=== PATIENT | female | born 1940 | race Two or more races ===

== ENCOUNTER → 2022-10-30 | Outpatient (CLI) | payer OTHER ==
[2022-10-30 09:39] LABS: Eosinophils # (auto) 0 10 ^3/uL (0-0.8); Eosinophils % (auto) 0.4 % (0.0-7.0); Hematocrit 30.1 % (36.0-46.0); Lymphocytes # (auto) 1.2 10 ^3/uL (0.4-5.4); Mean Corpuscular Hemoglobin 22.5 pg (28.0-32.0); Monocytes # (auto) 0.6 10 ^3/uL (0-1.3); Neutrophils # (auto) 6.4 10 ^3/uL (1.6-8.6); White Blood Cell 8.3 10^3/uL (4.4-10.8)
[2022-10-30 09:41] LABS: Basophils # (auto) 0 10 ^3/uL (0-0.2); Basophils % (auto) 0.5 % (0.0-2.0); Hemoglobin 9.7 g/dL (12.2-16.2); Mean Corpuscular Hgb Conc. 32.3 g/dL (32.0-36.0); Mean Corpuscular Volume 69.7 fL (80.0-100.0); Monocytes % (auto) 7.2 % (0.0-12.0); Neutrophils % (auto) 76.9 % (37.0-80.0); Nucleated Red Blood Cells % 0.1 %; Red Blood Cells 4.32 10^6/uL (4.0-5.20); Red Cell Distribution Width 17.6 % (11.8-14.3)
[2022-10-30 09:47] LABS: Urine Bacteria FEW /hpf (None Seen); Urine Blood Negative /uL (Negative); Urine Specific Gravity 1.012 (1.001-1.035); Urine WBC 20 /hpf (0 - 5)
[2022-10-30 10:03] LABS: Albumin 3.6 g/dL (3.4-5.0); Calcium 9.1 mg/dL (8.5-10.1); Potassium 4.1 mmol/L (3.5-5.1); Uric Acid 5.4 mg/dL (2.6-6.0)
[2022-10-30 10:08] LABS: BUN/Creatinine Ratio 20.3 (10.0-20.0); Bilirubin, Total 0.4 mg/dL (0.2-1.0); Total Protein 7.3 g/dL (6.4-8.2)
[2022-10-30 10:10] LABS: % Iron Saturation 12.2 % (15-50)
== END | disposition home or self-care (01) ==
LOC: LAB 09:04
PROVIDERS: ATTEND Family Medicine
DX: Z00.00 Encounter for general adult medical examination without abnormal findings (principal); R53.81 Other malaise; E11.9 Type 2 diabetes mellitus without complications
CPT/HCPCS: 36415; 80053; 80061; 81001; 82306; 82607; 83036; 83540; 83550; 84443; 84550; 85025; 87086

== ENCOUNTER → 2023-02-05 | Outpatient (CLI) | payer OTHER ==
[2023-02-05 09:29] LABS: Albumin 3.8 g/dL (3.4-5.0); Calcium 9.6 mg/dL (8.5-10.1); Potassium 4.3 mmol/L (3.5-5.1)
[2023-02-05 09:35] LABS: BUN/Creatinine Ratio 20.3 (10.0-20.0); Bilirubin, Total 0.3 mg/dL (0.2-1.0); Total Protein 7.4 g/dL (6.4-8.2)
== END | disposition home or self-care (01) ==
LOC: LAB 08:42
PROVIDERS: ATTEND Nurse Practitioner Acute Care
DX: I10 Essential (primary) hypertension (principal); E78.2 Mixed hyperlipidemia; E55.9 Vitamin D deficiency, unspecified; M23.52 Chronic instability of knee, left knee; E11.65 Type 2 diabetes mellitus with hyperglycemia; R26.2 Difficulty in walking, not elsewhere classified; E53.8 Deficiency of other specified B group vitamins; Z86.73 Personal history of transient ischemic attack (TIA), and cerebral infarction without residual deficits
CPT/HCPCS: 36415; 80053; 80061; 83036

== ENCOUNTER 2023-03-23 13:51 | Day surgery (SDC) | payer OTHER ==
[~2023-03-23] VITALS: Ht 137.2 cm; Wt 40.5 kg
[2023-03-23] MEDS ORDERED: SODIUM CHLORIDE 0.9% 500 ML IV ONE (14:30)
[2023-03-23] MEDS ORDERED: GLUCAGON EMERG KIT 1mg/1ml IV ONE (14:30)
[2023-03-23] MEDS ORDERED: PANTOPRAZOLE 40 MG/10 ML VIAL INJ IV ONE (14:45)
[2023-03-23 15:06] LABS: Basophils # (auto) 0.1 10 ^3/uL (0-0.2); Eosinophils # (auto) 0.3 10 ^3/uL (0-0.8); Monocytes # (auto) 0.7 10 ^3/uL (0-1.3); Neutrophils # (auto) 7.1 10 ^3/uL (1.6-8.6); White Blood Cell 9.6 10^3/uL (4.4-10.8)
[2023-03-23 15:07] LABS: Eosinophils % (auto) 3.3 % (0.0-7.0); Hematocrit 30.7 % (36.0-46.0); Hemoglobin 9.7 g/dL (12.2-16.2); Lymphocytes # (auto) 1.3 10 ^3/uL (0.4-5.4); Lymphocytes % (auto) 14.1 % (10.0-50.0); Mean Corpuscular Hemoglobin 21.8 pg (28.0-32.0); Mean Corpuscular Hgb Conc. 31.7 g/dL (32.0-36.0); Monocytes % (auto) 7.8 % (0.0-12.0); Neutrophils % (auto) 73.8 % (37.0-80.0); Red Blood Cells 4.45 10^6/uL (4.0-5.20); Red Cell Distribution Width 19.1 % (11.8-14.3)
[2023-03-23 15:14] LABS: Alanine Aminotransferase 19 U/L (7-40); Albumin 4.6 g/dL (3.2-4.8); Alkaline Phosphatase 95 U/L (46-116); Anion Gap 8 (5-15); Aspartate Aminotransferase 19 U/L (13-40); BUN/Creatinine Ratio 19.5 (10.0-20.0); Bilirubin, Total 0.4 mg/dL (0.2-1.0); Blood Urea Nitrogen 24 mg/dL (9-23); Calcium 10.1 mg/dL (8.7-10.4); Carbon Dioxide 24 mmol/L (20-30); Chloride 104 mmol/L (98-107); Glucose 172 mg/dL (74-106); Potassium 4.2 mmol/L (3.5-5.1); Sodium 136 mmol/L (136-145); Total Protein 7.2 g/dL (5.7-8.2)
[2023-03-23 15:19] LABS: INR 1.02 (0.9-1.15); Partial Thromboplastin Time 25.9 SEC (24.5-34.5); Prothrombin Time 10.7 sec (9.3-11.8)
[2023-03-23] MEDS ORDERED: MIDAZOLAM HCL 5 MG/ML-1ML VIAL ONE (15:31)
[2023-03-23] MEDS ORDERED: FLUMAZENIL 0.1 MG/ML INJ 10ML MDV IV ONE (15:32)
[2023-03-23] MEDS ORDERED: NALOXONE HCL 0.4 MG/ML VIAL ONE (15:32)
[2023-03-23] MEDS ORDERED: LIDOCAINE VISCOUS 2% 15ML UD ONE (15:32)
[2023-03-23] MEDS: fentaNYL CITRATE 100 MCG/2 ML VL ONE ×2 (15:42→15:45)
[2023-03-23] MEDS: diphenhdrAMINE HCL 50 MG/1 ML VL ONE ×2 (15:43→15:44)
[2023-03-23 15:46] LABS: Urine Bacteria FEW /hpf (None Seen); Urine Blood Negative /uL (Negative); Urine Clarity Clear (Clear); Urine Color Colorless (Yellow); Urine Mucus FEW (None Seen); Urine Protein, UAD Negative (Negative); Urine Urobilinogen Normal (Negative); Urine WBC 71 /hpf (0 - 5); Urine pH 5.5 (5.0-8.0)
[2023-03-23 15:52] VITALS: PULSE 74; RESP 16; O2SAT 100
[2023-03-23 16:10] VITALS: PULSE 69; RESP 17; O2SAT 99
[2023-03-23 16:22] VITALS: BP 138/50; PULSE 70; RESP 16; O2SAT 99
== END 2023-03-23 16:40 | disposition home or self-care (01) ==
LOC: ER 13:51 → GI 14:55
PROVIDERS: ATTEND Internal Medicine Gastroenterology
DX: T18.128A Food in esophagus causing other injury, initial encounter (principal); K44.9 Diaphragmatic hernia without obstruction or gangrene; K21.00 Gastro-esophageal reflux disease with esophagitis, without bleeding; K22.89 Other specified disease of esophagus; K22.10 Ulcer of esophagus without bleeding; Z88.1 Allergy status to other antibiotic agents; W44.F3XA Food entering into or through a natural orifice, initial encounter
CPT/HCPCS: 36415; 43239; 80053; 81001; 84484; 85025; 85610; 85730; 88305; 88312; 88342; 99283; C9113; J1200; J1610; J2250; J3010; J7030

== ENCOUNTER 2023-05-12 09:26 | Inpatient (IN) | payer OTHER ==
[~2023-05-12] VITALS: Ht 152.4 cm; Wt 44.4 kg
[2023-05-12 10:46] LABS: Basophils # (auto) 0.1 10 ^3/uL (0-0.2); Basophils % (auto) 0.7 % (0.0-2.0); Eosinophils # (auto) 0 10 ^3/uL (0-0.8); Eosinophils % (auto) 0.1 % (0.0-7.0); Hemoglobin 9.9 g/dL (12.2-16.2); Lymphocytes # (auto) 0.4 10 ^3/uL (0.4-5.4); Monocytes # (auto) 0.8 10 ^3/uL (0-1.3)
[2023-05-12 10:49] LABS: Hematocrit 31.3 % (36.0-46.0); Mean Corpuscular Hemoglobin 21.9 pg (28.0-32.0); Mean Corpuscular Hgb Conc. 31.7 g/dL (32.0-36.0); Mean Corpuscular Volume 69.3 fL (80.0-100.0); Monocytes % (auto) 4.3 % (0.0-12.0); Neutrophils % (auto) 92.9 % (37.0-80.0); Red Blood Cells 4.52 10^6/uL (4.0-5.20); Red Cell Distribution Width 18.6 % (11.8-14.3); White Blood Cell 19.4 10^3/uL (4.4-10.8)
[2023-05-12 11:07] LABS: INR 0.98 (0.9-1.15); Partial Thromboplastin Time 23.6 SEC (24.5-34.5); Prothrombin Time 10.3 sec (9.3-11.8)
[2023-05-12 11:41] LABS: Alanine Aminotransferase 25 U/L (7-40); Albumin 4.7 g/dL (3.2-4.8); Alkaline Phosphatase 122 U/L (46-116); Anion Gap 10 (5-15); Aspartate Aminotransferase 21 U/L (13-40); BUN/Creatinine Ratio 26.2 (10.0-20.0); Bilirubin, Total 0.5 mg/dL (0.2-1.0); Blood Urea Nitrogen 34 mg/dL (9-23); Calcium 9.5 mg/dL (8.5-10.1); Carbon Dioxide 21 mmol/L (20-30); Chloride 108 mmol/L (98-107); Glucose 286 mg/dL (74-106); Potassium 4.3 mmol/L (3.5-5.1); Sodium 139 mmol/L (136-145); Total Protein 6.9 g/dL (5.7-8.2)
[2023-05-12 12:29] LABS: Magnesium 1.6 mg/dL (1.6-2.6)
[2023-05-12] MEDS ORDERED: HYDROcodone-ACET 5/325MG TAB PO PRN (14:45)
[2023-05-12] MEDS ORDERED: ONDANSETRON HCL 4 MG/2 ML VIAL IV PRN (14:45)
[2023-05-12] MEDS ORDERED: DEXTROSE (50%) 50ML SYRG IV PRN (14:45)
[2023-05-12] MEDS ORDERED: CEFTRIAXONE SODIUM 2 GM in D5W 5% 100 ML IV ONE (14:45)
[2023-05-12] MEDS ORDERED: MORPHINE SULFATE INJ 2 MG/ml SYRG IV PRN (14:45)
[2023-05-12] MEDS ORDERED: LORazepam 0.5 MG TAB PO PRN (14:45)
[2023-05-12] MEDS ORDERED: NITROGLYCERIN 0.4 MG SL TAB SL PRN (14:45)
[2023-05-12] MEDS ORDERED: AZITHROMYCIN 250 MG TAB PO ONE (15:45)
[2023-05-12] MEDS ORDERED: ASPirin 325 MG TAB PO ONE (16:00)
[2023-05-12 16:05] LABS: Urine Bacteria FEW /hpf (None Seen); Urine Blood Negative /uL (Negative); Urine Clarity Clear (Clear); Urine Color Colorless (Yellow); Urine Protein, UAD Negative (Negative); Urine Specific Gravity 1.017 (1.001-1.035); Urine Urobilinogen Normal (Negative); Urine WBC <1 /hpf (0 - 5); Urine pH 5.5 (5.0-8.0)
[2023-05-12] MEDS: ACCU-CHEK COMFORT CURVE STRIP VI SCH ×2 (20:30→23:39)
[2023-05-12] MEDS: InsuLIN REG 1unit/0.01ml Soln (100units/ml) SC SCH (20:31)
[2023-05-12 20:42] VITALS: PULSE 104; RESP 20; O2SAT 99
[2023-05-12] MEDS: SODIUM CHLORIDE 0.9% 1,000 ML IV SCH (20:47)
[2023-05-12 22:04] VITALS: BP 127/77; PULSE 103; RESP 20; TEMP 98; O2SAT 96
[2023-05-12 22:59] LABS: Rapid Influenza A Negative (Negative); Rapid Influenza B Negative (Negative)
[2023-05-12] MEDS: SODIUM CHLOR 0.9% PF (SALINE LOCK) 10ML VIAL/SYR IV SCH (23:38)
[2023-05-12] MEDS: PANTOPRAZOLE 40 MG TAB PO SCH (23:38)
[2023-05-13] VITALS (8 sets, daily range): BP systolic 108–130; BP diastolic 35–77; PULSE 82–103; RESP 16–20; TEMP 97.6–98.3; O2SAT 94–98
[2023-05-13] MEDS: InsuLIN REG 1unit/0.01ml Soln (100units/ml) SC SCH ×5 (00:06→23:27)
[2023-05-13] MEDS: DOXYCYCLINE 100 MG TAB/CAP PO SCH ×3 (00:07→23:18)
[2023-05-13] MEDS: ACETAMINOPHEN 325 MG TAB PO PRN ×2 (00:55→09:40)
[2023-05-13] MEDS: SODIUM CHLORIDE 0.9% 1,000 ML IV SCH ×2 (05:01→17:25)
[2023-05-13] MEDS: SODIUM CHLOR 0.9% PF (SALINE LOCK) 10ML VIAL/SYR IV SCH ×3 (06:17→23:18)
[2023-05-13] MEDS: ACCU-CHEK COMFORT CURVE STRIP VI SCH ×4 (06:33→23:19)
[2023-05-13] MEDS: PANTOPRAZOLE 40 MG TAB PO SCH ×2 (09:40→23:18)
[2023-05-13] MEDS: ENOXAPARIN SOD 30 MG/0.3 ML SYRINGE SC SCH (09:41)
[2023-05-13] MEDS: cefTRIAXone 1GM/50ML D5W 50 ML IV SCH (09:41)
[2023-05-13] MEDS ORDERED: AZITHROMYCIN 250 MG TAB PO SCH (10:00)
[2023-05-13] MEDS ORDERED: ENOXAPARIN SOD 40 MG/0.4 ML SYRINGE SC SCH (10:00)
[2023-05-13 11:27] LABS: Basophils # (auto) 0.1 10 ^3/uL (0-0.2); Eosinophils # (auto) 0.1 10 ^3/uL (0-0.8); Hematocrit 27.1 % (36.0-46.0); Hemoglobin 8.5 g/dL (12.2-16.2); Lymphocytes # (auto) 1.5 10 ^3/uL (0.4-5.4); Mean Corpuscular Hemoglobin 21.8 pg (28.0-32.0); Mean Corpuscular Hgb Conc. 31.5 g/dL (32.0-36.0); White Blood Cell 14.3 10^3/uL (4.4-10.8)
[2023-05-13 11:30] LABS: Basophils % (auto) 0.6 % (0.0-2.0); Eosinophils % (auto) 0.6 % (0.0-7.0); Lymphocytes % (auto) 10.4 % (10.0-50.0); Mean Corpuscular Volume 69.3 fL (80.0-100.0); Monocytes % (auto) 7.1 % (0.0-12.0); Neutrophils # (auto) 11.6 10 ^3/uL (1.6-8.6); Neutrophils % (auto) 81.3 % (37.0-80.0); Nucleated Red Blood Cells % 0.1 %; Red Blood Cells 3.91 10^6/uL (4.0-5.20); Red Cell Distribution Width 18.7 % (11.8-14.3)
[2023-05-13 11:34] LABS: Chloride 106 mmol/L (98-107); Potassium 4.1 mmol/L (3.5-5.1)
[2023-05-13 11:35] LABS: Anion Gap 8 (5-15); Calcium 8.4 mg/dL (8.5-10.1); Carbon Dioxide 20 mmol/L (20-30)
[2023-05-13 11:40] LABS: BUN/Creatinine Ratio 19.5 (10.0-20.0); Glucose 310 mg/dL (74-106)
[2023-05-13 12:16] LABS: Blood Urea Nitrogen 23 mg/dL (9-23); Sodium 134 mmol/L (136-145)
[2023-05-13 13:19] LABS: Magnesium 1.4 mg/dL (1.6-2.6)
[2023-05-13] MEDS ORDERED: SODIUM FERR GLUC 62.5MG/5ML 125 MG in SODIUM CHL 0.9% 100 ML IV ONE (13:45)
[2023-05-13] MEDS: MAGNESIUM SULFATE 1GM/100ML 100 ML IV SCH ×2 (16:43→17:43)
[2023-05-13] MEDS: NYSTATIN (MOUTH-THROAT) 500,000 UNITS/5 ML SUSP MT SCH ×2 (17:42→23:19)
[2023-05-13] MEDS: MAGNESIUM OXIDE 400 MG TAB PO SCH (23:18)
[2023-05-14 05:00] VITALS: BP 135/60; PULSE 83; RESP 16; TEMP 98; O2SAT 100
[2023-05-14 05:32] LABS: Anion Gap 11 (5-15); Carbon Dioxide 20 mmol/L (20-30); Chloride 109 mmol/L (98-107); Potassium 3.7 mmol/L (3.5-5.1); Sodium 140 mmol/L (136-145)
[2023-05-14 05:33] LABS: Calcium 8.3 mg/dL (8.5-10.1)
[2023-05-14 05:37] LABS: Glucose 102 mg/dL (74-106)
[2023-05-14 05:38] LABS: Blood Urea Nitrogen 15 mg/dL (9-23)
[2023-05-14 05:51] LABS: Magnesium 2.4 mg/dL (1.6-2.6)
[2023-05-14 05:54] LABS: Basophils # (auto) 0.1 10 ^3/uL (0-0.2); Eosinophils # (auto) 0.1 10 ^3/uL (0-0.8); Eosinophils % (auto) 1.1 % (0.0-7.0); Mean Corpuscular Hemoglobin 22.3 pg (28.0-32.0); Red Cell Distribution Width 18.9 % (11.8-14.3)
[2023-05-14 05:56] LABS: Basophils % (auto) 0.5 % (0.0-2.0); Hematocrit 30.9 % (36.0-46.0); Hemoglobin 9.7 g/dL (12.2-16.2); Lymphocytes # (auto) 2.5 10 ^3/uL (0.4-5.4); Lymphocytes % (auto) 20.3 % (10.0-50.0); Mean Corpuscular Hgb Conc. 31.6 g/dL (32.0-36.0); Mean Corpuscular Volume 70.8 fL (80.0-100.0); Monocytes # (auto) 0.8 10 ^3/uL (0-1.3); Monocytes % (auto) 6.5 % (0.0-12.0); Neutrophils # (auto) 8.9 10 ^3/uL (1.6-8.6); Neutrophils % (auto) 71.6 % (37.0-80.0); Nucleated Red Blood Cells % 0.1 %; Red Blood Cells 4.36 10^6/uL (4.0-5.20); White Blood Cell 12.4 10^3/uL (4.4-10.8)
[2023-05-14] MEDS: NYSTATIN (MOUTH-THROAT) 500,000 UNITS/5 ML SUSP MT SCH ×3 (06:36→18:00)
[2023-05-14] MEDS: ACCU-CHEK COMFORT CURVE STRIP VI SCH ×3 (06:37→17:47)
[2023-05-14] MEDS: SODIUM CHLORIDE 0.9% 1,000 ML IV SCH (06:37)
[2023-05-14] MEDS: SODIUM CHLOR 0.9% PF (SALINE LOCK) 10ML VIAL/SYR IV SCH ×2 (06:37→13:38)
[2023-05-14] MEDS: InsuLIN REG 1unit/0.01ml Soln (100units/ml) SC SCH ×3 (06:44→17:00)
[2023-05-14 08:00] VITALS: BP 129/45; PULSE 78; PULSE 85; RESP 17; TEMP 97.4; O2SAT 97
[2023-05-14 09:00] VITALS: BP 129/45; PULSE 85; RESP 17; TEMP 97.4; O2SAT 97
[2023-05-14] MEDS: ENOXAPARIN SOD 30 MG/0.3 ML SYRINGE SC SCH (09:35)
[2023-05-14] MEDS: cefTRIAXone 1GM/50ML D5W 50 ML IV SCH (09:35)
[2023-05-14] MEDS: DOXYCYCLINE 100 MG TAB/CAP PO SCH (09:36)
[2023-05-14] MEDS: MAGNESIUM OXIDE 400 MG TAB PO SCH (09:36)
[2023-05-14] MEDS: PANTOPRAZOLE 40 MG TAB PO SCH (09:36)
[2023-05-14] MEDS ORDERED: SODIUM FERR GLUC 62.5MG/5ML 125 MG in SODIUM CHL 0.9% 100 ML IV SCH (12:00)
[2023-05-14 13:00] VITALS: BP 119/44; PULSE 81; RESP 16; TEMP 98.1; O2SAT 94
[2023-05-14] MEDS: ACETAMINOPHEN 325 MG TAB PO PRN (13:38)
[2023-05-14 15:49] VITALS: BP 119/44; PULSE 81; RESP 16; TEMP 98.1; O2SAT 94
[2023-05-14 17:00] VITALS: BP 124/53; PULSE 83; RESP 16; TEMP 97.8; O2SAT 95
== END 2023-05-14 17:58 | disposition home or self-care (01) | DRG 313 ==
LOC: ER 09:26 → EDBD 09:26 → TELE 14:43 → TELE-CENTR 21:38
PROVIDERS: ADMIT Internal Medicine; ATTEND Internal Medicine
DX: R07.89 Other chest pain (principal); J18.9 Pneumonia, unspecified organism; B37.81 Candidal esophagitis; I24.9 Acute ischemic heart disease, unspecified; N17.9 Acute kidney failure, unspecified; R65.10 Systemic inflammatory response syndrome (SIRS) of non-infectious origin without acute organ dysfunction; E11.22 Type 2 diabetes mellitus with diabetic chronic kidney disease; I12.9 Hypertensive chronic kidney disease with stage 1 through stage 4 chronic kidney disease, or unspecified chronic kidney disease; Z20.822 Contact with and (suspected) exposure to COVID-19; I25.10 Atherosclerotic heart disease of native coronary artery without angina pectoris; K21.00 Gastro-esophageal reflux disease with esophagitis, without bleeding; N18.32 Chronic kidney disease, stage 3b; I25.2 Old myocardial infarction; Z88.8 Allergy status to other drugs, medicaments and biological substances; Z95.1 Presence of aortocoronary bypass graft; Z88.1 Allergy status to other antibiotic agents
CPT/HCPCS: 36415; 71045; 71250; 80048; 80053; 81001; 82043; 82962; 83036; 83735; 83880; 84484; 85025; 85610; 85730; 87086; 87804; 93005; 93306; 96365; G0378; J0696; J1815; J7060

== ENCOUNTER 2023-12-23 09:24 | Inpatient (IN) | payer OTHER ==
[~2023-12-23] VITALS: Ht 137.2 cm; Wt 37.5 kg
[2023-12-23 09:57] LABS: Urine Bacteria FEW /hpf (None Seen); Urine Blood Negative /uL (Negative); Urine Clarity Clear (Clear); Urine Color Light-Yellow (Yellow); Urine Protein, UAD TRACE (Negative); Urine Specific Gravity 1.013 (1.001-1.035); Urine Urobilinogen Normal (Negative); Urine WBC <1 /hpf (0 - 5)
[2023-12-23 10:19] LABS: Basophils # (auto) 0 10 ^3/uL (0-0.2); Basophils % (auto) 0.2 % (0.0-2.0); Eosinophils # (auto) 0 10 ^3/uL (0-0.8); Eosinophils % (auto) 0.2 % (0.0-7.0); Hematocrit 39.5 % (36.0-46.0); Hemoglobin 13.7 g/dL (12.2-16.2); Lymphocytes % (auto) 10.7 % (10.0-50.0); Mean Corpuscular Hemoglobin 31.2 pg (28.0-32.0); Mean Corpuscular Hgb Conc. 34.7 g/dL (32.0-36.0); Monocytes # (auto) 0.7 10 ^3/uL (0-1.3); Monocytes % (auto) 7.5 % (0.0-12.0); Neutrophils # (auto) 7.3 10 ^3/uL (1.6-8.6); Neutrophils % (auto) 81.4 % (37.0-80.0); Red Blood Cells 4.39 10^6/uL (4.0-5.20); Red Cell Distribution Width 13.7 % (11.8-14.3); White Blood Cell 8.9 10^3/uL (4.4-10.8)
[2023-12-23 10:33] LABS: Alanine Aminotransferase 25 U/L (7-40); Albumin 4.6 g/dL (3.2-4.8); Alkaline Phosphatase 54 U/L (46-116); Anion Gap 10 (5-15); Aspartate Aminotransferase 19 U/L (13-40); BUN/Creatinine Ratio 14.7 (10.0-20.0); Blood Urea Nitrogen 16 mg/dL (9-23); Calcium 9.9 mg/dL (8.5-10.1); Carbon Dioxide 25 mmol/L (20-30); Chloride 86 mmol/L (98-107); Glucose 158 mg/dL (74-106); Potassium 3.6 mmol/L (3.5-5.1); Sodium 121 mmol/L (136-145)
[2023-12-23 10:34] LABS: Bilirubin, Total 0.6 mg/dL (0.2-1.0); Total Protein 6.8 g/dL (5.7-8.2)
[2023-12-23] MEDS: ONDANSETRON HCL 4 MG/2 ML VIAL IV ONE (12:36)
[2023-12-23] MEDS: SODIUM CHLORIDE 0.9% 1,000 ML IV ONE (17:45)
[2023-12-23] MEDS ORDERED: ASPI-325 PO (18:35)
[2023-12-23] MEDS ORDERED: DAPA1TAB4 PO (18:35)
[2023-12-23] MEDS ORDERED: RANO500T3 PO (18:35)
[2023-12-23] MEDS ORDERED: MET25T PO (18:35)
[2023-12-23] MEDS ORDERED: ATOR40TA52 PO (18:35)
[2023-12-23] MEDS ORDERED: CAND32TA PO (18:35)
[2023-12-23] MEDS ORDERED: FLUO20CA90 PO (18:35)
[2023-12-23] MEDS ORDERED: FLUT1INH4 INH (18:35)
[2023-12-23] MEDS ORDERED: ALBUTEROL SULF 2.5 MG/0.5ML(0.5%) NEB SOLN NEB PRN (18:45)
[2023-12-23] MEDS ORDERED: DEXTROSE (50%) 50ML SYRG IV PRN (18:45)
[2023-12-23] MEDS ORDERED: ONDANSETRON HCL 4 MG/2 ML VIAL IV PRN (18:45)
[2023-12-23 19:49] LABS: Triglycerides 125 mg/dL (< 150)
[2023-12-23 19:50] LABS: LDL Cholesterol 41 mg/dL (< 100)
[2023-12-23 19:51] LABS: HDL Cholesterol 47 mg/dL (40-59)
[2023-12-23 20:00] VITALS: PULSE 68; RESP 20; O2SAT 98
[2023-12-23 20:14] LABS: Cholesterol 106 mg/dL (< 200)
[2023-12-23 21:00] VITALS: BP 151/50; PULSE 69; RESP 16; TEMP 97.3; O2SAT 99
[2023-12-23 21:27] VITALS: BP 151/50; PULSE 69; RESP 16; TEMP 97.3; O2SAT 99
[2023-12-23 21:31] VITALS: BP 168/56; PULSE 60; RESP 20; TEMP 97.7; O2SAT 99
[2023-12-23] MEDS: RANOLAZINE ER 500 MG TAB PO SCH (22:03)
[2023-12-23] MEDS: SODIUM CHLORIDE 0.9% 1,000 ML IV SCH (22:04)
[2023-12-23] MEDS: METOPROLOL TARTRATE 25 MG TAB PO SCH (22:04)
[2023-12-23 23:21] VITALS: O2SAT 99
[2023-12-23] MEDS: ACCU-CHEK COMFORT CURVE STRIP VI SCH (23:50)
[2023-12-23] MEDS: InsuLIN REG 1unit/0.01ml Soln (100units/ml) SC SCH (23:50)
[2023-12-24] VITALS (7 sets, daily range): BP systolic 105–143; BP diastolic 39–68; PULSE 55–62; RESP 16–18; TEMP 97.3–98.5; O2SAT 96–99
[2023-12-24 06:59] LABS: Alanine Aminotransferase 23 U/L (7-40); Alkaline Phosphatase 48 U/L (46-116); Anion Gap 9 (5-15); Aspartate Aminotransferase 18 U/L (13-40); BUN/Creatinine Ratio 12.6 (10.0-20.0); Blood Urea Nitrogen 12 mg/dL (9-23); Calcium 9.4 mg/dL (8.5-10.1); Carbon Dioxide 25 mmol/L (20-30); Chloride 93 mmol/L (98-107); Glucose 89 mg/dL (74-106); Potassium 3.7 mmol/L (3.5-5.1)
[2023-12-24 07:00] LABS: Bilirubin, Total 0.5 mg/dL (0.2-1.0); Total Protein 5.9 g/dL (5.7-8.2)
[2023-12-24 07:01] LABS: Sodium 127 mmol/L (136-145)
[2023-12-24 07:08] LABS: Basophils # (auto) 0 10 ^3/uL (0-0.2); Basophils % (auto) 0.6 % (0.0-2.0); Eosinophils # (auto) 0.2 10 ^3/uL (0-0.8); Eosinophils % (auto) 2.7 % (0.0-7.0); Hematocrit 36.8 % (36.0-46.0); Lymphocytes # (auto) 1.3 10 ^3/uL (0.4-5.4); Lymphocytes % (auto) 21.6 % (10.0-50.0); Mean Corpuscular Hemoglobin 31.2 pg (28.0-32.0); Mean Corpuscular Hgb Conc. 35.4 g/dL (32.0-36.0); Mean Corpuscular Volume 88.2 fL (80.0-100.0); Monocytes # (auto) 0.7 10 ^3/uL (0-1.3); Monocytes % (auto) 11.9 % (0.0-12.0); Neutrophils # (auto) 3.8 10 ^3/uL (1.6-8.6); Neutrophils % (auto) 63.2 % (37.0-80.0); Nucleated Red Blood Cells % 0.1 %; Red Blood Cells 4.17 10^6/uL (4.0-5.20); Red Cell Distribution Width 13.9 % (11.8-14.3)
[2023-12-24] MEDS: EMPAGLIFLOZIN 10 MG TAB PO SCH (09:30)
[2023-12-24] MEDS: ASPirin-EC 81 mg tab PO SCH (09:31)
[2023-12-24] MEDS: FLUoxetine HCL 20 MG CAP PO SCH (09:31)
[2023-12-24] MEDS: ATORVASTATIN 20 MG TAB PO SCH (09:32)
[2023-12-24] MEDS: LOSARTAN POTASSIUM 50 MG TAB PO SCH (09:33)
[2023-12-24] MEDS: FLUTICASONE FUROATE IN SCH (09:36)
[2023-12-24 11:39] LABS: Amphetamine Screen, Urine Neg (NEGATIVE); Barbiturate Scree,Urine Neg (NEGATIVE); Benzodiazephine Screen, Urine Neg (NEGATIVE); Cannabinoid Screen, Urine Neg (NEGATIVE); Cocaine Screen, Urine Neg (NEGATIVE); Opiate Scree,Urine Neg (NEGATIVE); Phencyclidine Screen, Urine Neg (NEGATIVE)
[2023-12-24 11:44] LABS: INR 1.03 (0.9-1.15); Partial Thromboplastin Time 26.1 SEC (24.5-34.5); Prothrombin Time 10.9 sec (9.3-11.8)
[2023-12-24] MEDS: ACETAMINOPHEN 325 MG TAB PO PRN (11:58)
[2023-12-24 20:22] LABS: Free T4 (Free Thyroxine) 1.22 ng/dL (0.89-1.76)
[2023-12-25] VITALS (12 sets, daily range): BP systolic 122–162; BP diastolic 47–54; PULSE 53–64; RESP 17–18; TEMP 97.4–97.8; O2SAT 95–100
[2023-12-25] MEDS: PANTOPRAZOLE 40 MG TAB PO SCH (05:05)
[2023-12-25 06:02] LABS: Basophils # (auto) 0.1 10 ^3/uL (0-0.2); Basophils % (auto) 0.8 % (0.0-2.0); Eosinophils # (auto) 0.2 10 ^3/uL (0-0.8); Eosinophils % (auto) 2.5 % (0.0-7.0); Hematocrit 36.1 % (36.0-46.0); Lymphocytes # (auto) 1.3 10 ^3/uL (0.4-5.4); Lymphocytes % (auto) 19.6 % (10.0-50.0); Mean Corpuscular Hemoglobin 31.7 pg (28.0-32.0); Mean Corpuscular Hgb Conc. 36.1 g/dL (32.0-36.0); Mean Corpuscular Volume 87.7 fL (80.0-100.0); Monocytes # (auto) 0.7 10 ^3/uL (0-1.3); Monocytes % (auto) 10.7 % (0.0-12.0); Neutrophils # (auto) 4.4 10 ^3/uL (1.6-8.6); Neutrophils % (auto) 66.4 % (37.0-80.0); Nucleated Red Blood Cells % 0.1 %; Red Blood Cells 4.12 10^6/uL (4.0-5.20); Red Cell Distribution Width 14.1 % (11.8-14.3); White Blood Cell 6.7 10^3/uL (4.4-10.8)
[2023-12-25 06:18] LABS: Alanine Aminotransferase 45 U/L (7-40); Alkaline Phosphatase 48 U/L (46-116); Anion Gap 6 (5-15); BUN/Creatinine Ratio 10.6 (10.0-20.0); Blood Urea Nitrogen 9 mg/dL (9-23); Calcium 9.5 mg/dL (8.7-10.4); Carbon Dioxide 25 mmol/L (20-30); Chloride 99 mmol/L (98-107); Glucose 108 mg/dL (74-106); Potassium 3.9 mmol/L (3.5-5.1); Sodium 130 mmol/L (136-145)
[2023-12-25 06:19] LABS: Albumin 3.8 g/dL (3.2-4.8); Aspartate Aminotransferase 46 U/L (13-40)
[2023-12-25 06:20] LABS: Bilirubin, Total 0.4 mg/dL (0.2-1.0)
[2023-12-25 07:02] LABS: Total Protein 5.7 g/dL (5.7-8.2)
[2023-12-25] MEDS: hydrALAZINE HCL 20 MG/ML VL IV PRN (12:51)
[2023-12-26] VITALS (8 sets, daily range): BP systolic 102–182; BP diastolic 42–60; PULSE 56–80; RESP 15–18; TEMP 97.7–97.9; O2SAT 94–99
[2023-12-26 07:27] LABS: Calcium 9.1 mg/dL (8.5-10.1); Chloride 103 mmol/L (98-107); Potassium 3.9 mmol/L (3.5-5.1); Sodium 134 mmol/L (136-145)
[2023-12-26 07:28] LABS: Anion Gap 8 (5-15); Carbon Dioxide 23 mmol/L (20-30)
[2023-12-26 07:34] LABS: BUN/Creatinine Ratio 6.4 (10.0-20.0); Blood Urea Nitrogen 5 mg/dL (9-23); Glucose 89 mg/dL (74-106)
[2023-12-26] MEDS: VALSARTAN 80 MG TAB PO SCH (10:06)
[2023-12-26] MEDS: Glucerna Carbsteady SHAKE Chocolate 8oz PO SCH (18:00)
[2023-12-27 01:00] VITALS: BP 102/43; PULSE 69; RESP 15; TEMP 97.9; O2SAT 98
[2023-12-27 05:00] VITALS: BP 120/47; PULSE 72; RESP 15; TEMP 98; O2SAT 95
[2023-12-27 07:15] LABS: Anion Gap 4 (5-15); Carbon Dioxide 26 mmol/L (20-30); Chloride 105 mmol/L (98-107); Sodium 135 mmol/L (136-145)
[2023-12-27 07:17] LABS: Calcium 9.3 mg/dL (8.7-10.4)
[2023-12-27 07:21] LABS: BUN/Creatinine Ratio 14.8 (10.0-20.0); Blood Urea Nitrogen 13 mg/dL (9-23); Glucose 118 mg/dL (74-106)
[2023-12-27 09:00] VITALS: BP 141/57; PULSE 74; RESP 17; TEMP 98.7; O2SAT 98
[2023-12-27 10:00] VITALS: O2SAT 98
[2023-12-27] MEDS: ENOXAPARIN SOD 30 MG/0.3 ML SYRINGE SC SCH (11:12)
[2023-12-27 12:50] VITALS: TEMP 37.1
[2023-12-27 13:21] VITALS: BP 149/57; PULSE 74
[2023-12-27] MEDS ORDERED: PANT40T PO (15:13)
[2023-12-27] MEDS ORDERED: FLUoxetine HCL 20 MG CAP PO SCH (22:00)
[2023-12-29 15:08] LABS: Hepatitis A Ab IgM Negative
[2023-12-29 15:09] LABS: Hepatitis B Core IgM Negative
[2023-12-29 15:10] LABS: Hepatitis C Antibody Negative (Negative)
[2023-12-30 03:42] LABS: Hepatitis B Surface Antigen Negative (Negative)
== END 2023-12-27 15:07 | disposition home or self-care (01) | DRG 393 ==
LOC: ER 09:24 → OVERFLOW 18:42 → CENTRAL 20:46
PROVIDERS: ADMIT Internal Medicine; ATTEND Emergency Medicine
DX: K52.1 Toxic gastroenteritis and colitis (principal); N17.0 Acute kidney failure with tubular necrosis; B37.81 Candidal esophagitis; E87.1 Hypo-osmolality and hyponatremia; Z68.1 Body mass index [BMI] 19.9 or less, adult; A08.4 Viral intestinal infection, unspecified; K21.9 Gastro-esophageal reflux disease without esophagitis; E86.0 Dehydration; I10 Essential (primary) hypertension; E11.9 Type 2 diabetes mellitus without complications; I25.10 Atherosclerotic heart disease of native coronary artery without angina pectoris; J44.89 Other specified chronic obstructive pulmonary disease; R13.10 Dysphagia, unspecified; E87.8 Other disorders of electrolyte and fluid balance, not elsewhere classified; E86.1 Hypovolemia; F32.9 Major depressive disorder, single episode, unspecified; E78.5 Hyperlipidemia, unspecified; Z95.1 Presence of aortocoronary bypass graft; Z88.1 Allergy status to other antibiotic agents; Z86.73 Personal history of transient ischemic attack (TIA), and cerebral infarction without residual deficits; Z83.3 Family history of diabetes mellitus; Z90.710 Acquired absence of both cervix and uterus; T46.995A Adverse effect of other agents primarily affecting the cardiovascular system, initial encounter
CPT/HCPCS: 36415; 74176; 80048; 80053; 80061; 80074; 80307; 81001; 82306; 82378; 82607; 82962; 83036; 83605; 83690; 83930; 83935; 84300; 84439; 84443; 84481; 84484; 85025; 85610; 85730; 86301; 87086; 93005; 96374; G0378; J1815; J2405

== ENCOUNTER 2024-07-03 11:27 | Inpatient (IN) | payer MEDICARE, OTHER ==
[~2024-07-03] VITALS: Ht 142.2 cm; Wt 38.6 kg
[2024-07-03] VITALS (9 sets, daily range): BP systolic 118; BP diastolic 26; PULSE 69–76; RESP 18–30; O2SAT 93–100
[~2024-07-03 11:27] MED LIST: ASPI-325 PO; ATOR40TA52 PO; CAND32TA PO; DAPA1TAB4 PO; FLUO-470 PO; FLUT1INH4 INH; MET25T PO; PANT40T PO; RANO500T3 PO
--- NOTE | 2024-07-03 11:47 | ED.PDOC ---
SOB-HPI HPI Comments 84y F who presents to the ED for chief complaint of shortness of breath. Per pt son, pt has been having shortness of breath with associated cough, congestion for the past1 week with associated fever. Pt son states he has noticed pt 02 sat over the past few weeks has been in the 80's and been going from the mid 80's to the mid 90's. Pt son states family has been sick over the past few weeks. Pt in the ED, has noted 02 sat of 93% on room air with temp of 98.1F with all other vitals in normal range. Pt otherwise denies any other symptoms at this time. Chief Complaint: Shortness of Breath Time Seen by MD: 11:45 Primary Care Provider: DIPESH Jansen notes: Nurses Notes Information Source: Patient Mode of Arrival: Ambulatory Brought in by: pt son Past Medical History PAST MEDICAL HISTORY: DM, HTN, SD Surgical History: CABG, Denies all surgeries ENGINEER SYSTEM ADMINISTRATOR History: No Pertinent ENGINEER SYSTEM ADMINISTRATOR History Family History Family History: Unknown Social History Smoker: Non-Smoker Alcohol: Denies ETOH Use Drugs: Denies Drug Use Lives In: Home Constitutional: reports: fever; denies: chills, diaphoresis, fatigue, malaise, sweats, weakness, others EENTM: denies: blurred vision, double vision, ear bleeding, ear discharge, ear drainage, ear pain, ear ringing, eye pain, eye redness, hearing loss, mouth pain, mouth swelling, nasal discharge, nose bleeding, nose congestion, nose pain, photophobia, tearing, throat pain, throat swelling, voice changes, others Respiratory: reports: cough, shortness of breath; denies: hemoptysis, orthopnea, SOB at rest, SOB with excertion, stridor, wheezing, others Cardiovascular: denies: chest pain, dizzy spells, diaphoresis, Dyspnea on exertion, edema, irregular heart beat, left arm pain, lightheadedness, pa lpitations, PND, syncope, others Gastrointestinal: denies: abdomen distended, abdominal pain, blood streaked bowels, constipated, diarrhea, dysphagia, difficulty swallowing, hematemesis, melena, nausea, poor appetite, poor fluid intake, rectal bleeding, rectal pain, vomiting, others Genitourinary: denies: abnormal vagina bleeding, burning, dyspareunia, dysuria, flank pain, frequency, hematuria, incontinence, pain, , vagina discharge, urgency, others Neurological: denies: dizziness, fainting, headache, left sided numbness, left sided weakness, numbness, paresthesia, pre-existing deficit, right sided numbness, right sided weakness, seizure, speech problems, tingling, tremors, weakness, others Musculoskeletal: denies: back pain, gout, joint pain, joint swelling, muscle pain, muscle stiffness, neck pain, others Integumetry: denies: bruises, change in color, change in hair/nails, dryness, laceration, lesions, lumps, rash, wounds, others Allergic/Immunocompromised: denies: Difficulty Healing, Frequent Infections, Hives, Itching, others Hematologic/Lymphatic: denies: anemia, blood clots, easy bleeding, easy bruising, swollen glands, others Endocrine: denies: excessive hunger, excessive sweating, excessive thirst, excessive urination, flushing, intolerance to cold, intolerance to heat, unexplained weight gain, unexplained weight loss, others Psychiatric: denies: anxiety, bipolar disorder, depression, hopeless, panic disorder, schizophrenia, sleepless, suicidal, others All Other Systems: Reviewed and Negative Physical Exam General Appearance: Moderate Distress HEENT: Normal ENT Inspection, Pharynx Normal, TMs Normal Neck: Full Range of Motion, Non-Tender, Normal, Normal Inspection Respiratory: Respiratory Distress, Other (Coarse breath sounds) Cardiovascular: No Edema, No JVD, No Murmur, No Gallop, Normal Peripheral Pulses, Regular Rate/Rhythm Breast Exam: Deferred Gastrointestinal: No Organomegaly, Non Tender, No Pulsatile Mass, Normal Bowel Sounds, Soft Genitalia: Deferred Pelvic: Deferred Rectal: Deferred Extremities: No calf tenderness, Normal capillary refill, Normal inspection, Normal range of motion, Non-tender, No pedal edema Musculoskeletal : Apperance: Normal Neurologic: Alert Cerebellar Function: NOT DONE Reflexes: NOT DONE Skin: Normal Color Lymphatic: No Adenopathy Was a procedure done? Was a procedure done?: No Differential Dx Differential Diagnosis: Anxiety, Asthma, Bronchitis, CHF, COPD, Pneumonia Comments viral syndrome, X-Ray, Labs, Meds, VS Vital Signs Date Time Temp Pulse Resp B/P (MAP) Pulse Ox O2 Delivery O2 Flow Rate FiO2 07/03/24 12:07 18 94 Room Air* 0 21 07/03/24 12:00 97.5 69 18 117/80 (92) 98 97.5 07/03/24 12:00 69 18 98 Room Air* 0 21 07/03/24 11:43 72 07/03/24 11:39 98.1 79 20 140/83 (102) 93 Lab Test 07/03/24 11:48 Range/Units White Blood Count 11.5 H 4.4-10.8 10^3/uL Red Blood Count 4.30 4.0-5.20 10^6/uL Hemoglobin 12.7 12.2-16.2 g/dL Hematocrit 37.2 36.0-46.0 % Mean Corpuscular Volume 86.4 80.0-100.0 fL Mean Corpuscular Hemoglobin 29.5 28.0-32.0 pg Mean Corpuscular Hemoglobin Concent 34.1 32.0-36.0 g/dL Red Cell Distribution Width 15.4 H 11.8-14.3 % Platelet Count 342 140-450 10^3/uL Mean Platelet Volume 7.8 6.9-10.8 fL Neutrophils (%) (Auto) 77.9 37.0-80.0 % Lymphocytes (%) (Auto) 9.5 L 10.0-50.0 % Monocytes (%) (Auto) 12.0 0.0-12.0 % Eosinophils (%) (Auto) 0.3 0.0-7.0 % Basophils (%) (Auto) 0.3 0.0-2.0 % Neutrophils # (Auto) 9.0 H 1.6-8.6 10 ^3/uL Lymphocytes # (Auto) 1.1 0.4-5.4 10 ^3/uL Monocytes # (Auto) 1.4 H 0-1.3 10 ^3/uL Eosinophils # (Auto) 0 0-0.8 10 ^3/uL Basophils # (Auto) 0 0-0.2 10 ^3/uL Nucleated Red Blood Cells 0.0 % Sodium Level 130 L 136-145 mmol/L Potassium Level 5.0 3.5-5.1 mmol/L Chloride Level 98 98-107 mmol/L Carbon Dioxide Level 17 L 20-31 mmol/L Anion Gap 15 5-15 Blood Urea Nitrogen 32 H 9-23 mg/dL Creatinine 1.44 H 0.550-1.02 mg/dL Glomerular Filtration Rate Calc 36 >90 mL/min BUN/Creatinine Ratio 22.2 H 10.0-20.0 Serum Glucose 308 H 74-106 mg/dL Calcium Level 9.3 8.7-10.4 mg/dL Troponin I High Sensitivity 9 </=34 ng/L Current Medications Medications (Trade) Dose Ordered Sig/Donte Route Start Time Stop Time Status Last Admin Methylprednisolone Sodium Succinate (Solu Medrol) 80 mg ONCE ONCE IV 07/03/24 11:45 07/03/24 11:46 DC 07/03/24 12:13 Albuterol (Ventolin Medneb) 5 mg ONCE ONCE NEB 07/03/24 11:45 07/03/24 11:46 DC 07/03/24 12:06 Ipratropium [place] (Atrovent Medneb) 0.5 mg ONCE ONCE NEB 07/03/24 11:45 07/03/24 11:46 DC 07/03/24 12:06 CHEST RADIOGRAPH IMPRESSION: 1. Minimally increased lung markings right mid lung field peripherally without consolidation Patient alert. Complaining of shortness a breath. Possible pneumonitis. Vitals stable. Answering all questions. Chest x-ray reviewed does show any acute process possible early pneumonitis. Was given steroid. Was given breathing treatment. Reviewed her history. Explained to the family. Continue cardiac monitoring. EKG reviewed does not show any acute changes. Time of 1ST Reevaluation: 12:15 Reevaluation 1ST: Unchanged Patient Education/Counseling: Diagnosis, Treatment Family Education/Counseling: Diagnosis, Treatment Departure 1 Departure Time of Disposition: 13:10 Impression: Primary Impression: COPD exacerbation Additional Impression: Pneumonitis Disposition: ADMITTED INPATIENT Admit to: Med Surg Condition: Guarded Critical Care Note Critical Care Time?: Yes (90 min-critical care time only) Stability Stability form required: No Heart Score Heart Score: Heart Score Response (Comments) Value History Slightly Suspicious 0 EKG Normal 0 Age >65 2 Risk Factors >3 or Hx ASHD 2 Troponin Normal limit 0 Total 4 I personally scribed for CORRIE TREVINO MD (RONNIE) on 07/03/24 at 11:47. Electronically submitted by Sandie Zimmerman ([facility] [employer] [employer] I personally scribed for CORRIE TREVINO MD (RONNIE) on 07/03/24 at 12:27. Electronically submitted by Sandie Zimmerman ([email or web address]). CORRIE TREVINO MD Jul 03, 2024 11:47
[2024-07-03] MEDS: ALBUTEROL SULF 2.5 MG/0.5ML(0.5%) NEB SOLN NEB ONE (12:06)
[2024-07-03] MEDS: IPRATROPIUM BROM 0.5 MG/2.5ML INH SOL NEB ONE (12:06)
[2024-07-03] MEDS: methylPREDNISolone SOD SUCC 125 MG/2 ML VL IV ONE (12:13)
--- NOTE | 2024-07-03 12:16 | DVH ---
CHEST RADIOGRAPH Indication: sob Technique: Single frontal view of the chest was obtained COMPARISON: XY CHEST PORTABLE on DOS: 05/12/23 FINDINGS: Lines and Tubes: None Lungs: Minimally increased markings right mid lung field peripherally. Persistent scarring at the med ial right lung base. No consolidation Linear atelectatic changes left midlung field peripherally Pleura: No effusion. No pneumothorax. Cardiomediastinal contours: Unremarkable Bones: Unremarkable IMPRESSION: 1. Minimally increased lung markings right mid lung field peripherally without consolidation
[2024-07-03 12:20] LABS: Basophils # (auto) 0 10 ^3/uL (0-0.2); Basophils % (auto) 0.3 % (0.0-2.0); Eosinophils # (auto) 0 10 ^3/uL (0-0.8); Eosinophils % (auto) 0.3 % (0.0-7.0); Hematocrit 37.2 % (36.0-46.0); Hemoglobin 12.7 g/dL (12.2-16.2); Lymphocytes # (auto) 1.1 10 ^3/uL (0.4-5.4); Lymphocytes % (auto) 9.5 % (10.0-50.0); Mean Corpuscular Hemoglobin 29.5 pg (28.0-32.0); Mean Corpuscular Hgb Conc. 34.1 g/dL (32.0-36.0); Mean Corpuscular Volume 86.4 fL (80.0-100.0); Monocytes # (auto) 1.4 10 ^3/uL (0-1.3); Neutrophils % (auto) 77.9 % (37.0-80.0); Platelet Count (auto) 342 10^3/uL (140-450); Red Cell Distribution Width 15.4 % (11.8-14.3); White Blood Cell 11.5 10^3/uL (4.4-10.8)
[2024-07-03 12:33] LABS: Chloride 98 mmol/L (98-107); Sodium 130 mmol/L (136-145)
[2024-07-03 12:34] LABS: Anion Gap 15 (5-15); Calcium 9.3 mg/dL (8.7-10.4)
[2024-07-03 12:37] LABS: Carbon Dioxide 17 mmol/L (20-31)
[2024-07-03 12:39] LABS: BUN/Creatinine Ratio 22.2 (10.0-20.0)
[2024-07-03 12:44] LABS: Blood Urea Nitrogen 32 mg/dL (9-23); Glucose 308 mg/dL (74-106)
[2024-07-03] MEDS ORDERED: NITROGLYCERIN 0.4 MG SL TAB SL PRN (16:15)
[2024-07-03] MEDS ORDERED: ONDANSETRON HCL 4 MG/2 ML VIAL IV PRN (16:15)
[2024-07-03] MEDS ORDERED: IPRATROPIUM BROM 0.5 MG/2.5ML INH SOL NEB PRN (16:15)
[2024-07-03] MEDS ORDERED: ALBUTEROL SULF 2.5 MG/0.5ML(0.5%) NEB SOLN NEB PRN (16:15)
--- NOTE | 2024-07-03 16:38 | DVHHP2 ---
History of Present Illness Reason for Visit: SOB, cough, congestion, and fever History of Present Illness Meenakshi Singleton is an 84-year-old female with past medical history of CAD status post CABG on September 23, 2000 at [facility], hypertension, hyperlipidemia, diabetes, COPD, IBS, GERD, depression, grade B and candidal esophagitis, and bilateral cataracts who presents to the ED for shortness of breath, cough, congestion, and fever x1 week. Patient reports that there is sick family at home who she is surrounded by. Patient also reports that she uses 2 L of oxygen via nasal cannula at home. Patient reports that she uses a front wheel walker to ambulate but that she has multiple history of falls. Patient also reports that she was adopted by a smoker parents who smoked 3 packs of cigarettes per day. Patient denies any drinking, smoking, and illicit drug use. Patient denies chest pain, chills, nausea, vomiting, diarrhea, abdominal pain, lightheadedness, weakness, and dizziness. Cardiovascular: CAD, HTN, hyperipidemia Pulmonary: COPD GI: GERD, Irritable bowel disease Psych: Depression Past Medical History Grade B and candidal esophagitis Past Surgical History: CABG, Other (Bilateral cataracts) Family History: None Smoke: No ALCOHOL: none Drugs: None Lives: with Family Domestic Violence: Neg Review of Systems Constitutional: Yes: Fever; No: Chills, Sweats, Weakness, Malaise, Other Eyes: No: Pain, Vision change, Conjunctivae inflammation, Eyelid inflammation, Other, Redness ENT: No: Ear pain, Ear discharge, Nose pain, Nose discharge, Nose congestion, Mouth pain, Mouth swelling, Throat pain, Throat swelling, Other Respiratory: Cough, Other (Congestion); No: Dry, Shortness of breath, SOB with excertion, Wheezing, Hemoptysis, Pleuritic Pain, Sputum, Wheezing Cardiovascular: No: Chest Pain, Palpitations, Orthopnea, Paroxysmal Noc. Dyspnea, Edema, Lt Headedness, Other Gastrointestinal: No: Nausea, Vomiting, Abdominal Pain, Diarrhea, Constipation, Melena, Hematochezia, Other Genitourinary: No Dysuria, No Frequency, No Incontinence, No Hematuria, No Retention, No Other Musculoskeletal: No: other, neck pain, shoulder pain, arm pain, back pain, hand pain, leg pain, foot pain Skin: No: Rash, Lesions, Jaundice, Bruising, Other Neurological: No: Weakness, Numbness, Incoordination, Change in speech, Confusion, Seizures, Other Allergies: Coded Allergies: Erythromycin (Verified Allergy, Severe, 03/23/23) Exam Vital Signs Vital Signs Date Time Temp Pulse Resp B/P (MAP) Pulse Ox O2 Delivery O2 Flow Rate FiO2 07/03/24 14:10 97.7 74 22 118/26 (56) 95 97.7 07/03/24 14:10 Nasal Cannula* 1 24 General Appearance: Alert, Oriented X3, Cooperative, No acute distress HEENT: Atraumatic, PERRLA, EOMI, Mucous membr. moist/pink Respiratory: Clear to auscultation, Normal air movement Cardiovascular: Regular rate, Normal S1, Normal S2, No murmurs Abdominal: Normal bowel sounds, Soft, No tenderness, No hepatospenomegaly, No masses Extremities: No clubbing, No cyanosis, No edema, Normal pulses, No tenderness/swelling Skin: No rashes, No breakdown, No significant lesion Neuro: Normal gait, Normal speech, Normal tone, Sensation intact Psych/Mental Status: Mental status NL, Mood NL Labs/Xrays Labs Test 07/03/24 11:48 Range/Units White Blood Count 11.5 H 4.4-10.8 10^3/uL Red Blood Count 4.30 4.0-5.20 10^6/uL Hemoglobin 12.7 12.2-16.2 g/dL Hematocrit 37.2 36.0-46.0 % Mean Corpuscular Volume 86.4 80.0-100.0 fL Mean Corpuscular Hemoglobin 29.5 28.0-32.0 pg Mean Corpuscular Hemoglobin Concent 34.1 32.0-36.0 g/dL Red Cell Distribution Width 15.4 H 11.8-14.3 % Platelet Count 342 140-450 10^3/uL Mean Platelet Volume 7.8 6.9-10.8 fL Neutrophils (%) (Auto) 77.9 37.0-80.0 % Lymphocytes (%) (Auto) 9.5 L 10.0-50.0 % Monocytes (%) (Auto) 12.0 0.0-12.0 % Eosinophils (%) (Auto) 0.3 0.0-7.0 % Basophils (%) (Auto) 0.3 0.0-2.0 % Neutrophils # (Auto) 9.0 H 1.6-8.6 10 ^3/uL Lymphocytes # (Auto) 1.1 0.4-5.4 10 ^3/uL Monocytes # (Auto) 1.4 H 0-1.3 10 ^3/uL Eosinophils # (Auto) 0 0-0.8 10 ^3/uL Basophils # (Auto) 0 0-0.2 10 ^3/uL Nucleated Red Blood Cells 0.0 % Sodium Level 130 L 136-145 mmol/L Potassium Level 5.0 3.5-5.1 mmol/L Chloride Level 98 98-107 mmol/L Carbon Dioxide Level 17 L 20-31 mmol/L Anion Gap 15 5-15 Blood Urea Nitrogen 32 H 9-23 mg/dL Creatinine 1.44 H 0.550-1.02 mg/dL Glomerular Filtration Rate Calc 36 >90 mL/min BUN/Creatinine Ratio 22.2 H 10.0-20.0 Serum Glucose 308 H 74-106 mg/dL Calcium Level 9.3 8.7-10.4 mg/dL Troponin I High Sensitivity 9 </=34 ng/L CHEST RADIOGRAPH Indication: sob Technique: Single frontal view of the chest was obtained COMPARISON: XY CHEST PORTABLE on DOS: 05/12/23 FINDINGS: Lines and Tubes: None Lungs: Minimally increased markings right mid lung field peripherally. Persistent scarring at the medial right lung base. No consolidation Linear atelectatic changes left midlung field peripherally Pleura: No effusion. No pneumothorax. Cardiomediastinal contours: Unremarkable Bones: Unremarkable IMPRESSION: 1. Minimally increased lung markings right mid lung field peripherally without consolidation Assessment/Plan Assessment/Plan Assessment/Plan: Acute on chronic COPD exacerbation likely suspecting pneumonia Leukocytosis likely secondary to pneumonia ELVIRA Hyponatremia Elevated BUN Elevated creatinine UA Respiratory treatments IV Solu-Medrol given ER EKG UA Chest x-ray Troponin negative Labs a.m. labs Chest x-ray a.m. IV antibiotics-ceftriaxone Oxygen dependent-patient on 2 L nasal cannula at home Rounding team to consider Nephro consult if BUN or creatinine does not improve Last echo done on 05/13/2023 EF 55% Echo ordered covid influenza Diabetes uncontrolled Hemoglobin A1c ISS and Accu-Cheks History of CAD status post CABG on September 23, 2000 at [facility] per patient Continue home medications Consider cardiology consult if symptomatic Chronic hypertension Continue home medications Chronic hyperlipidemia Continue home medications Chronic IBS Chronic GERD Continue home medications Chronic depression Continue home medications History of grade B and candidal esophagitis Follow up outpatient with PCP FEN/PPX diet Ivf DVT ppx - lovenox PUD ppx - continue home medication, Protonix Discussed plan of care with patient and nurse Home medications reconciled Admit to tele Plan discussed with: Patient Date of Service: Jul 03, 2024 Billing Provider: EDITH BLACK Common Visit Codes: [id number] INP/OBS CARE (HIGH) EDITH BLACK Jul 03, 2024 16:38
[2024-07-03] MEDS: cefTRIAXone 1GM/50ML D5W 50 ML IV ONE (17:06)
[2024-07-03] MEDS: SODIUM CHLORIDE 0.9% 1,000 ML IV SCH (17:07)
[2024-07-03 18:29] LABS: COVID19 ANTIGEN SOFIA FIA NEGATIVE (NEGATIVE); Rapid Influenza A Negative (Negative); Rapid Influenza B Negative (Negative)
[2024-07-03] MEDS: ALBUTEROL SULF 2.5 MG/0.5ML(0.5%) NEB SOLN NEB SCH (18:29)
[2024-07-03] MEDS: IPRATROPIUM BROM 0.5 MG/2.5ML INH SOL NEB SCH (18:29)
[2024-07-03 18:45] LABS: Urine Bacteria None Seen /hpf (None Seen)
[2024-07-03 18:55] LABS: Urine Blood Negative /uL (Negative); Urine Clarity Clear (Clear); Urine Color Light-Yellow (Yellow); Urine Protein, UAD Negative (Negative); Urine Specific Gravity 1.018 (1.001-1.035); Urine Squamous Epithelial Cell FEW /hpf (<5); Urine Urobilinogen Normal (Negative); Urine WBC 16 /hpf (0 - 5); Urine pH 5.5 (5.0-9.0)
[2024-07-04] VITALS (18 sets, daily range): BP systolic 101–118; BP diastolic 33–65; PULSE 61–74; RESP 16–20; TEMP 97.2–97.7; O2SAT 91–100
[2024-07-04] MEDS: ACETAMINOPHEN 325 MG TAB PO PRN (01:24)
[2024-07-04 06:58] LABS: Basophils # (auto) 0 10 ^3/uL (0-0.2); Basophils % (auto) 0.1 % (0.0-2.0); Eosinophils # (auto) 0 10 ^3/uL (0-0.8); Hemoglobin 11.2 g/dL (12.2-16.2); Lymphocytes # (auto) 0.5 10 ^3/uL (0.4-5.4); Lymphocytes % (auto) 5.4 % (10.0-50.0); Mean Corpuscular Hemoglobin 29.5 pg (28.0-32.0); Mean Corpuscular Hgb Conc. 33.9 g/dL (32.0-36.0); Mean Corpuscular Volume 87.2 fL (80.0-100.0); Monocytes # (auto) 0.6 10 ^3/uL (0-1.3); Monocytes % (auto) 6.4 % (0.0-12.0); Neutrophils # (auto) 8.4 10 ^3/uL (1.6-8.6); Neutrophils % (auto) 88.1 % (37.0-80.0); Platelet Count (auto) 300 10^3/uL (140-450); Red Blood Cells 3.79 10^6/uL (4.0-5.20); Red Cell Distribution Width 15.7 % (11.8-14.3); White Blood Cell 9.6 10^3/uL (4.4-10.8)
[2024-07-04 07:05] LABS: Albumin 3.4 g/dL (3.2-4.8); Alkaline Phosphatase 87 U/L (46-116); Anion Gap 13 (5-15); BUN/Creatinine Ratio 25.3 (10.0-20.0); Chloride 100 mmol/L (98-107)
--- NOTE | 2024-07-04 07:18 | ECG ---
[facility] Test Date: 2024-07-03 Test Time: 11:43:37 Pat Name: JHONATAN ARAMBULA Department: ER Room: 0248T Gender: F Business Account Specialist: DR GOMEZ: 1940 Requested By: CORRIE TREVINO Order Number: [id number] Reading MD: Measurements Intervals [place] Rate: 72 P: 53 KS: 173 QRS: -12 QRSD: 89 T: 11 QT: 402 QTc: 440 Interpretive Statements Sinus rhythm Left ventricular hypertrophy Baseline wander in lead(s) II,V3,V6 Please click the below link to view image of tracing.
[2024-07-04 07:51] LABS: Alanine Aminotransferase 58 U/L (7-40); Aspartate Aminotransferase 92 U/L (13-40); Bilirubin, Total 0.3 mg/dL (0.2-1.0); Blood Urea Nitrogen 38 mg/dL (9-23); Carbon Dioxide 16 mmol/L (20-31); Potassium 5.2 mmol/L (3.5-5.1); Sodium 129 mmol/L (136-145)
[2024-07-04 07:53] LABS: Glucose 443 mg/dL (74-106)
[2024-07-04] MEDS ORDERED: DEXTROSE (50%) 50ML SYRG IV PRN ×2 (08:30→12:30)
[2024-07-04] MEDS: cefTRIAXone 1GM/50ML D5W 50 ML IV SCH (09:18)
[2024-07-04] MEDS: ENOXAPARIN SOD 30 MG/0.3 ML SYRINGE SC SCH (09:24)
[2024-07-04] MEDS: ACCU-CHEK COMFORT CURVE STRIP VI SCH ×2 (11:30→16:23)
[2024-07-04] MEDS: InsuLIN REG 1unit/0.01ml Soln (100units/ml) SC SCH ×2 (11:30→16:20)
--- NOTE | 2024-07-04 12:01 | DVHSR ---
APPROVED REPORT EXAM: Two-dimensional and M-mode echocardiogram with Doppler and color Doppler. Blood Pressure: 103/41 mmHg INDICATION SOB RISK FACTORS Height: , Weight: DIMENSIONS LVDd3.6 (3.8-5.7cm)LA (2D)3.9 (1.9-4.0cm)Aortic Root2.7 (2.0-3.7cm) LVDs2.0 (2.5-4.0cm)LA (MM) (1.9-4.0cm)Aortic Cusp Exc1.3 (1.5-2.0cm) EF (%) 76.0 (55-70%)Rt. Atrium3.4 (1.9-4.0cm)Asc. Aorta cm IVSd1.0 (0.7-1.1cm)RV (D) (1.8-2.4cm) PWd1.0 (0.7-1.1cm) Mitral Valve MitralMitral Stenosis E wave1.00m/sMV Mean GR.2mmHg A wave0.84m/sMV Peak GR.51mmHg E/A ratio1.22D MVAcm2 DECEL [id number] 1/2 [id number] IVRTmsDop MVA2.53cm2 Aortic Valve Aortic ValveAortic Stenosis V11.08m/Constance Mean GR.4mmHg V21.42m/Constance Peak GR.8mmHg LVOT Diameter1.6 (1.8-2.4cm)Doppler AVA1.53cm2 Pulmonic Valve V20.99m/s Tricuspid Valve TR Velocity2.60m/s [id number] Conclusion MILD LVH AND MILD LV DIASTOLIC DYSFUNCTION LV EJECTION FRACTION IS 75% AND IS NORMAL HEAVILY CALCIFIED POSTERIOR MITRAL LEAFLET AND ANNULUS MODERATELY DILATED LA AORTIC SCLEROSIS NORMAL RV FUNCTION NO EFFUSION NORMAL RVSP AND IS 31 MM OF HG
[2024-07-04] MEDS ORDERED: FLUT1INH4 IN ×2 (14:43→14:54)
[2024-07-04] MEDS ORDERED: MAGN400T40 OR (14:44)
[2024-07-04] MEDS ORDERED: NITR0.4O2 PR (14:46)
[2024-07-04] MEDS ORDERED: CYAN500L4 PO (14:49)
[2024-07-04] MEDS ORDERED: PYRI1TAB11 PO (14:50)
[2024-07-04] MEDS ORDERED: METF-370 PO (14:52)
[2024-07-04] MEDS ORDERED: METF-371 PO (14:52)
[2024-07-04] MEDS: SODIUM CHLORIDE 0.9% 1,000 ML IV SCH (15:00)
--- NOTE | 2024-07-04 18:08 | DVHPN2 ---
Subjective Patient reports that her shortness of breath has improved. Reviewed: Care Plan, H&P, Labs, Medications Changes from previous H/P or p: No Changes General: Per HPI Eyes: No Pain, No Vision change, No Conjunctivae inflammation, No Eyelid inflammation, No Other, No Redness ENT: No Ear pain, No Ear discharge, No Nose pain, No Nose discharge, No Nose congestion, No Mouth pain, No Mouth swelling, No Throat pain, No Throat swelling, No Other Cardiovascular: No Chest Pain, No Palpitations, No Orthopnea, No Paroxysmal Noc. Dyspnea, No Edema, No Lt Headedness, No Other Respiratory: Cough; No Dry, No Shortness of breath, No SOB with excertion, No Wheezing, No Hemoptysis, No Pleuritic Pain, No Sputum; Other (Congestion) Gastrointestinal: No Nausea, No Vomiting, No Abdominal Pain, No Diarrhea, No Constipation, No Melena, No Hematochezia, No Other Genitourinary: No Dysuria, No Frequency, No Incontinence, No Hematuria, No Retention, No Other Musculoskeletal: No other, No neck pain, No shoulder pain, No arm pain, No back pain, No hand pain, No leg pain, No foot pain Skin: No Rash, No Lesions, No Jaundice, No Bruising, No Other Objective Vitals Vital Signs Date Time Temp Pulse Resp B/P (MAP) Pulse Ox O2 Delivery O2 Flow Rate FiO2 07/04/24 17:09 97.3 68 18 101/33 (55) 95 97.3 07/04/24 12:19 Nasal Cannula* 2 28 Intake/Output Intake and Output 07/04/24 07:00 Intake Total 370 ml Balance 370 ml Intake Oral 200 ml IV Total 170 ml # Voids 3 General Appearance: Alert, Oriented X3, Cooperative, No acute distress HEENT: Atraumatic, PERRLA Lungs: Clear to auscultation, Normal air movement Cardiovascular: Normal S1, Normal S2 Abdomen: Normal bowel sounds, Soft, No tenderness Musculoskeletal: Normal sensory function, Normal motor function Neuro: Normal gait, Normal speech Psych/Mental Status: Mental status NL, Mood NL Medications Current Medications Medications Dose Ordered Sig/Donte Route Start Time Stop Time Status Last Admin Dose Admin Ceftriaxone Sodium 50 ml @ 100 mls/hr DAILY@09 IV 07/04/24 09:00 07/04/24 09:18 100 MLS/HR Albuterol 2.5 mg Q6HWA NEB 07/03/24 18:00 07/04/24 12:26 2.5 MG Albuterol 2.5 mg Q4HPRN PRN NEB 07/03/24 16:15 Ipratropium [place] 0.5 mg Q6HWA NEB 07/03/24 18:00 07/04/24 12:26 0.5 MG Ipratropium [place] 0.5 mg Q4HPRN PRN NEB 07/03/24 16:15 Ondansetron HCl 4 mg Q4HP PRN IV 07/03/24 16:15 Acetaminophen 650 mg Q6HP PRN PO 07/03/24 16:15 07/04/24 09:35 650 MG Nitroglycerin 0.4 mg Q5MINP PRN SL 07/03/24 16:15 Morphine Sulfate 2 mg Q30M PRN IV 07/03/24 16:15 Enoxaparin Sodium 30 mg DAILY SC 07/04/24 10:00 07/04/24 09:24 30 MG Diagnostic Test (Pha) 1 strip IQ4HR 07/04/24 16:00 07/04/24 16:23 1 STRIP Insulin Human Regular IQ4HR SC 07/04/24 16:00 07/04/24 16:20 20 UNITS Dextrose 50 ml UD PRN IV 07/04/24 12:30 Sodium Chloride 1,000 ml @ 100 mls/hr Q10H IV 07/04/24 15:00 07/04/24 15:00 100 MLS/HR Laboratory Results Laboratory Tests 07/04/24 06:19 Chemistry Test 07/04/24 06:19 Albumin 3.4 g/dL (3.2-4.8) Calcium Level 9.0 mg/dL (8.7-10.4) Total Protein 6.0 g/dL (5.7-8.2) LFT Test 07/04/24 06:19 Alanine Aminotransferase (ALT) 58 U/L (7-40) H Alkaline Phosphatase 87 U/L (46-116) Aspartate Amino Transferase (AST) 92 U/L (13-40) H Total Bilirubin 0.3 mg/dL (0.2-1.0) HgA1c, TSH Test 07/04/24 06:19 Hemoglobin A1c 7.1 % A1C (<5.7) H Urinalysis Test 07/03/24 18:33 Urine Color Light-yellow (Yellow) Urine Clarity Clear (Clear) Urine pH 5.5 (5.0-9.0) Urine Specific Isabel 1.018 (1.001-1.035) Urine Protein Negative (Negative) Urine Ketones 2+ (Negative) H Urine Blood Negative /uL (Negative) Urine Nitrite Negative (Negative) Urine Bilirubin Negative (Negative) Urine Urobilinogen Normal mg/dL (Negative) Urine Leukocyte Esterase Trace /uL (Negative) Urine RBC 1 /hpf (0 - 4) Urine WBC 16 /hpf (0 - 5) Urine Squamous Epithelial Cells Few /hpf (<5) Urine Bacteria None seen /hpf (None Seen) Urine Glucose 4+ mg/dL (Normal) H Labs and/or images reviewed: Labs reviewed by me, Image(s) reviewed by me Assessment/Plan Assessment/Plan Impression: -acute on chronic hypoxic respiratory failure -COPD with exacerbation -rule out community-acquired pneumonia, Gram-positive/Gram-negative etiology -coronary artery disease with previous CABG -diabetes mellitus -severe hyperglycemia, secondary to Solu-Medrol -hyperkalemia Plan: -continue IV hydration -bronchodilators, add Pulmicort -increase insulin coverage to aggressive scale -potassium lowering agent -pulmonology consultation -repeat labs and chest x-ray in a.m. Total time spent with patient discussing and formulating plan of care: 35 minutes. This medical document was created using an electronic medical record system with [employer] dictation system. Although this document has been carefully reviewed, there may still be some phonetic and typographical errors. These areas are purely typographical due to imperfections of the software programs, and do not reflect any compromise in the patient's medical care. Plan discussed with: Patient, Other (RN) My Orders Orders - VIRA ARREAGA [employer] Procedure Category Date Status Time Glucose Blood PHA 07/04/24 In Process (Accu-Chek Comfort 16:00 Insulin R (Human) PHA 07/04/24 In Process (Insulin R) 16:00 Dextrose 50% Syringe PHA 07/04/24 In Process 12:30 Sodium Chloride 0.9% PHA 07/04/24 In Process 15:00 Basic Metabolic Panel LAB 07/05/24 Verified 04:00 Complete Blood Count LAB 07/05/24 Verified 04:00 Date of Service: Jul 04, 2024 Billing Provider: VIRA ARREAGA NP Common Visit Codes: [id number] INP/OBS CARE(HIGH) VIRA ARREAGA NP Jul 04, 2024 18:08
[2024-07-04] MEDS: BUDESONIDE (INHALATION) 0.5 MG/2 ML NEB NEB SCH (21:37)
[2024-07-05] VITALS (15 sets, daily range): BP systolic 108–151; BP diastolic 42–68; PULSE 64–98; RESP 14–19; TEMP 97.3–98.1; O2SAT 10–100
[2024-07-05 08:38] LABS: Basophils # (auto) 0 10 ^3/uL (0-0.2); Basophils % (auto) 0.1 % (0.0-2.0); Eosinophils # (auto) 0 10 ^3/uL (0-0.8); Eosinophils % (auto) 0.2 % (0.0-7.0); Hemoglobin 10.8 g/dL (12.2-16.2); Lymphocytes # (auto) 1.7 10 ^3/uL (0.4-5.4); Lymphocytes % (auto) 13.4 % (10.0-50.0); Mean Corpuscular Hemoglobin 29.2 pg (28.0-32.0); Mean Corpuscular Hgb Conc. 33.7 g/dL (32.0-36.0); Mean Corpuscular Volume 86.7 fL (80.0-100.0); Monocytes # (auto) 0.9 10 ^3/uL (0-1.3); Monocytes % (auto) 7.2 % (0.0-12.0); Neutrophils # (auto) 9.7 10 ^3/uL (1.6-8.6); Neutrophils % (auto) 79.1 % (37.0-80.0); Platelet Count (auto) 381 10^3/uL (140-450); Red Blood Cells 3.69 10^6/uL (4.0-5.20); Red Cell Distribution Width 15.4 % (11.8-14.3); White Blood Cell 12.3 10^3/uL (4.4-10.8)
[2024-07-05 08:56] LABS: Anion Gap 10 (5-15); Chloride 107 mmol/L (98-107)
[2024-07-05 08:57] LABS: Carbon Dioxide 18 mmol/L (20-31); Sodium 135 mmol/L (136-145)
[2024-07-05 08:58] LABS: Calcium 9.2 mg/dL (8.7-10.4)
[2024-07-05 09:03] LABS: Blood Urea Nitrogen 35 mg/dL (9-23); Glucose 150 mg/dL (74-106)
--- NOTE | 2024-07-05 15:26 | DVHPN2 ---
Subjective Patient reports that her shortness of breath has improved. Reviewed: Care Plan, H&P, Labs, Medications Changes from previous H/P or p: No Changes General: Per HPI Eyes: No Pain, No Vision change, No Conjunctivae inflammation, No Eyelid inflammation, No Other, No Redness ENT: No Ear pain, No Ear discharge, No Nose pain, No Nose discharge, No Nose congestion, No Mouth pain, No Mouth swelling, No Throat pain, No Throat swelling, No Other Cardiovascular: No Chest Pain, No Palpitations, No Orthopnea, No Paroxysmal Noc. Dyspnea, No Edema, No Lt Headedness, No Other Respiratory: Cough; No Dry, No Shortness of breath, No SOB with excertion, No Wheezing, No Hemoptysis, No Pleuritic Pain, No Sputum; Other (Congestion) Gastrointestinal: No Nausea, No Vomiting, No Abdominal Pain, No Diarrhea, No Constipation, No Melena, No Hematochezia, No Other Genitourinary: No Dysuria, No Frequency, No Incontinence, No Hematuria, No Retention, No Other Musculoskeletal: No other, No neck pain, No shoulder pain, No arm pain, No back pain, No hand pain, No leg pain, No foot pain Skin: No Rash, No Lesions, No Jaundice, No Bruising, No Other Objective Vitals Vital Signs Date Time Temp Pulse Resp B/P (MAP) Pulse Ox O2 Delivery O2 Flow Rate FiO2 07/05/24 12:11 64 16 100 07/05/24 12:05 Nasal Cannula 2.0 07/05/24 12:05 28 07/05/24 09:00 97.5 108/42 (64) 97.5 Intake/Output Intake and Output 07/05/24 07:00 Intake Total 2030 ml Output Total 600 ml Balance 1430 ml Intake Oral 1980 ml IV Total 50 ml Output Urine Total 600 ml # Voids 3 General Appearance: Alert, Oriented X3, Cooperative, No acute distress HEENT: Atraumatic, PERRLA Lungs: Clear to auscultation, Normal air movement Cardiovascular: Normal S1, Normal S2 Abdomen: Normal bowel sounds, Soft, No tenderness Musculoskeletal: Normal sensory function, Normal motor function Neuro: Normal gait, Normal speech Skin: Dry, Intact, Warm Psych/Mental Status: Mental status NL, Mood NL Medications Current Medications Medications Dose Ordered Sig/Donte Route Start Time Stop Time Status Last Admin Dose Admin Ceftriaxone Sodium 50 ml @ 100 mls/hr DAILY@09 IV 07/04/24 09:00 07/05/24 08:44 100 MLS/HR Albuterol 2.5 mg Q6HWA NEB 07/03/24 18:00 07/05/24 12:05 2.5 MG Albuterol 2.5 mg Q4HPRN PRN NEB 07/03/24 16:15 Ipratropium [place] 0.5 mg Q6HWA NEB 07/03/24 18:00 07/05/24 12:05 0.5 MG Ipratropium [place] 0.5 mg Q4HPRN PRN NEB 07/03/24 16:15 Ondansetron HCl 4 mg Q4HP PRN IV 07/03/24 16:15 Acetaminophen 650 mg Q6HP PRN PO 07/03/24 16:15 07/05/24 03:51 650 MG Nitroglycerin 0.4 mg Q5MINP PRN SL 07/03/24 16:15 Morphine Sulfate 2 mg Q30M PRN IV 07/03/24 16:15 Enoxaparin Sodium 30 mg DAILY SC 07/04/24 10:00 07/05/24 08:47 30 MG Diagnostic Test (Pha) 1 strip IQ4HR 07/04/24 16:00 07/05/24 12:15 1 STRIP Insulin Human Regular IQ4HR SC 07/04/24 16:00 07/05/24 12:18 12 UNITS Dextrose 50 ml UD PRN IV 07/04/24 12:30 Sodium Chloride 1,000 ml @ 100 mls/hr Q10H IV 07/04/24 15:00 07/05/24 12:15 100 MLS/HR Budesonide 0.5 mg BID NEB 07/04/24 22:00 07/05/24 07:13 0.5 MG Laboratory Results Laboratory Tests 07/05/24 07:45 Chemistry Test 07/05/24 07:45 Calcium Level 9.2 mg/dL (8.7-10.4) Urinalysis Test 07/03/24 18:33 Urine Color Light-yellow (Yellow) Urine Clarity Clear (Clear) Urine pH 5.5 (5.0-9.0) Urine Specific [place] 1.018 (1.001-1.035) Urine Protein Negative (Negative) Urine Ketones 2+ (Negative) H Urine Blood Negative /uL (Negative) Urine Nitrite Negative (Negative) Urine Bilirubin Negative (Negative) Urine Urobilinogen Normal mg/dL (Negative) Urine Leukocyte Esterase Trace /uL (Negative) Urine RBC 1 /hpf (0 - 4) Urine WBC 16 /hpf (0 - 5) Urine Squamous Epithelial Cells Few /hpf (<5) Urine Bacteria None seen /hpf (None Seen) Urine Glucose 4+ mg/dL (Normal) H Labs and/or images reviewed: Labs reviewed by me, Image(s) reviewed by me Assessment/Plan Assessment/Plan Impression: -acute on chronic hypoxic respiratory failure -COPD with exacerbation -rule out community-acquired pneumonia, Gram-positive/Gram-negative etiology -coronary artery disease with previous CABG -diabetes mellitus -severe hyperglycemia, secondary to Solu-Medrol -hyperkalemia Plan: -events: No events overnight. Further discussion with the patient reveals that she was not on home oxygen. -assess patient on room air. -physical therapy consultation -bronchodilators, add Pulmicort -blood sugars improved. Decreased to a.c./HS scale, moderate coverage -pulmonology consultation -repeat labs and chest x-ray in a.m. Total time spent with patient discussing and formulating plan of care: 35 minutes. This medical document was created using an electronic medical record system with [employer] dictation system. Although this document has been carefully reviewed, there may still be some phonetic and typographical errors. These areas are purely typographical due to imperfections of the software programs, and do not reflect any compromise in the patient's medical care. Plan discussed with: Patient, Other (rn) My Orders Orders - VIRA ARREAGA CTRS Procedure Category Date Status Time Budesonide PHA 07/04/24 In Process (Inhalation) 22:00 Chest Xray 1 View XY 07/05/24 Logged 14:18 Pt Request For Service PT 07/05/24 Transmitted 15:22 Communication Order ORDERS 07/05/24 Transmitted 15:22 Glucose Blood PHA 07/05/24 Transmitted (Accu-Chek Comfort 17:00 Bedtime Insulin Scale PHA 07/05/24 Transmitted 22:00 Moderate Insulin Ss PHA 07/05/24 Transmitted 17:00 Dextrose 50% Syringe PHA 07/05/24 Transmitted 15:30 Date of Service: Jul 05, 2024 Billing Provider: VIRA ARREAGA NP Common Visit Codes: [id number] INP/OBS CARE(HIGH) VIRA ARREAGA NP Jul 05, 2024 15:26
[2024-07-05] MEDS ORDERED: DEXTROSE (50%) 50ML SYRG IV PRN (15:30)
--- NOTE | 2024-07-05 15:48 | DVH ---
EXAM: XY CHEST XRAY 1 VIEW TECHNIQUE: Single frontal chest radiograph CLINICAL HISTORY: pna COMPARISON: XY CHEST PORTABLE on DOS: 07/03/24, XY CHEST PORTABLE on DOS: 05/12/23 Findings/Impression: Frontal chest radiograph demonstrates no acute osseous or superficial soft tissue abnormalities. The trachea is midline. The cardiac silhouette and mediastinum are within normal limits. Right medial lower lung field consolidation. Cannot exclude aspiration. No pneumothorax or pleural effusions.
[2024-07-05] MEDS: ACCU-CHEK COMFORT CURVE STRIP VI SCH (17:19)
[2024-07-05] MEDS: InsuLIN REG 1unit/0.01ml Soln (100units/ml) SC SCH ×2 (17:19→21:57)
--- NOTE | 2024-07-05 23:14 | DVHINCON2 ---
Date of service: Jul 05, 2024 Referring Physician Dat Ortega NP Reason for Consultation Acute on chronic hypoxic respiratory failure, pneumonia and COPD exacerbation History of Present Illness An 84-year-old woman with past medical history that includes COPD, CAD s/p CABG, hypertension, hyperlipidemia, diabetes, IBS, GERD, and depression who presents to the ED on 07/03/24 for shortness of breath, cough, congestion, and fever x1 week. Patient reported multiple sick contacts at home. She uses 2 L of oxygen via nasal cannula at home. She uses a front wheel walker to ambulate, but has history of multiple falls. Patient also with positive secondhand smoke exposure in childhood. Patient was admitted for further care and pulmonary consultation is requested for evaluation and management of acute on chronic hypoxic respiratory failure, pneumonia and COPD exacerbation. Review of Systems: 14-point review of systems negative unless otherwise noted above. Past Medical History: COPD, CAD s/p CABG, hypertension, hyperlipidemia, diabetes, IBS, GERD, depression, grade B and candidal esophagitis, and bilateral cataracts Past Surgical History: CABG (September 23, 2000 at [facility]) and bilateral cataracts. Medications: Reviewed. Allergies: Erythromycin. Family History: DM, kidney failure. Social History: Nonsmoker. Hx of secondhand smoke exposure (pt was adopted by smoker parents who smoked 3 packs of cigarettes per day) No alcohol or illicit drug use. Family History: Diabetes mellitus G8 MOTHER G8 FATHER FH: kidney failure G8 FATHER Allergies: Coded Allergies: Erythromycin (Verified Allergy, Severe, 03/23/23) Home Meds Active Scripts Pantoprazole Sodium Sesquihydr (Protonix) 40 Mg Tab, 40 MG PO BID for 30 Days, #60 TAB Prov:DAT ORTEGA [employer]ECTIVE [employer]IC[employer] SQUAD 07/07/24 Sucralfate (CARAFATE) 1 Gm Tab, 1 GM OR BID for 30 Days, #60 TAB Prov:DAT ORTEGA [employer]ECT[employer]IC[employer] SQUAD 07/07/24 Amoxicillin & Pot Clavulanate (AUGMENTIN TABLET) 875 Mg Tb, 875 MG PO BID for 7 Days, #14 TAB Prov:DAT ORTEGA [employer]ECT[employer] HOMIC[employer] SQUAD 07/07/24 Pantoprazole Sodium Sesquihydr (Pantoprazole Sodium) 40 Mg Tab, 40 MG PO DAILY@0600 for 90 Days, #90 TAB Prov:HOLLIE LOWE RESIDENT 12/27/23 Reported Medications Fluticasone Furoate (Inhalatio (Arnuity Ellipta) 200 Mcg/Act Inh, 200 MCG IN DAILY, INHALER 07/04/24 Metformin Hydrochloride (Metformin Hcl) 500 Mg Tab, 750 MG PO DAILY, TAB 07/04/24 Pyridoxine HCl (Vitamin B6) 100 Mg Tab, 100 MG PO DAILY, #1 TAB 07/04/24 Cyanocobalamin (Vitamin B 12) 500 Mcg Odette, 1000 MCG PO DAILY for 1 Day, #1 ODETTE 07/04/24 Nitroglycerin (Intra-Anal) (Nitroglycerin) 0.4 % Oin, 0.4 % HI, OIN 07/04/24 Magnesium Oxide (MAGNESIUM OXIDE) 400 Mg Tab, 400 MG OR, TAB 07/04/24 Fluticasone Furoate (Inhalatio (Arnuity Ellipta) 200 Mcg/Act Inh, 200 MCG IN, INHALER 07/04/24 Atorvastatin Calcium (ATORVASTATIN CALCIUM) 40 Mg Tab, 1 TAB PO DAILY 12/23/23 Metoprolol Tartrate (Lopressor) 25 Mg Tb, 1 TAB PO BID 12/23/23 Aspirin (Aspirin Low Dose) 81 Mg Tab, 1 TAB PO DAILY 12/23/23 Candesartan Cilexetil (CANDESARTAN CILEXETIL) 32 Mg Tab, 1 TAB PO DAILY 12/23/23 Dapagliflozin Propanediol (Farxiga) 10 Mg Tab, 1 TAB PO DAILY 12/23/23 Discontinued Reported Medications Metformin Hydrochloride (Metformin Hcl) 850 Mg Tab, 750 TAB PO BID, #180 TAB 3 Refills 07/04/24 Fluticasone Furoate (Inhalatio (Arnuity Ellipta) 200 Mcg/Act Inh, 1 PUFF INH DAILY 12/23/23 Ranolazine (Ranolazine ER) 500 Mg Tab, 1 TAB PO BID 12/23/23 Fluoxetine HCl (Fluoxetine HCl) 20 Mg Cap, 1 CAP PO DAILY 12/23/23 Current Medications Current Medications Medications (Trade) Dose Ordered Sig/Donte Route PRN Reason Start Time Stop Time Status Last Admin Diagnostic Test (Pha) (Accu-Chek Comfort Curve T) 1 strip ACHS 07/05/24 17:00 07/05/24 21:52 Insulin Human Regular (InsuLIN R) HS SC 07/05/24 22:00 07/05/24 21:57 Insulin Human Regular (InsuLIN R) AC SC 07/05/24 17:00 07/05/24 17:19 Dextrose 50 ml UD PRN IV Blood Sugar LESS THAN 60 07/05/24 15:30 Vital Signs Vital Signs Date Time Temp Pulse Resp B/P (MAP) Pulse Ox O2 Delivery O2 Flow Rate FiO2 07/05/24 20:00 Nasal Cannula* 2 28 07/05/24 20:00 98 07/05/24 18:56 16 100 07/05/24 17:00 97.3 135/55 (81) 97.3 Physical Exam Gen.: Patient lying in bed in no apparent distress. On supplemental oxygen. Head: Normocephalic, atraumatic. Eyes: EOMI/PERRLA. Ears: Normal hearing. Normal anatomy. Neck/trachea: Trachea midline, supple. Nose: Normal external anatomy. Mouth: Moist mucous membranes. Chest: Decreased air entry bilaterally. No wheezing or rhonchi. Cardiovascular: Positive S1, positive S2. Regular rate and rhythm. Abdomen: Positive bowel sounds in all 4 quadrants. Soft, non-tender, non- distended. : Deferred. Rectal: Deferred. Skin: Warm, dry. Intact. Extremities: 2+ radial pulses bilaterally. No lower extremity edema. Neuro: Awake, alert, oriented x3. No gross motor or sensory deficits. Cranial nerves II through XII intact. Gait not assessed. Labs/Diagnostic Data Labs Test 07/05/24 21:51 07/05/24 07:45 07/04/24 06:19 07/03/24 18:33 Range/Units POC Glucose 278 H 70-106 mg/dl White Blood Count 12.3 #H 4.4-10.8 10^3/uL Red Blood Count 3.69 L 4.0-5.20 10^6/uL Hemoglobin 10.8 L 12.2-16.2 g/dL Hematocrit 32.0 L 36.0-46.0 % Mean Corpuscular Volume 86.7 80.0-100.0 fL Mean Corpuscular Hemoglobin 29.2 28.0-32.0 pg Mean Corpuscular Hemoglobin Concent 33.7 32.0-36.0 g/dL Red Cell Distribution Width 15.4 H 11.8-14.3 % Platelet Count 381 140-450 10^3/uL Mean Platelet Volume 7.7 6.9-10.8 fL Neutrophils (%) (Auto) 79.1 37.0-80.0 % Lymphocytes (%) (Auto) 13.4 10.0-50.0 % Monocytes (%) (Auto) 7.2 0.0-12.0 % Eosinophils (%) (Auto) 0.2 0.0-7.0 % Basophils (%) (Auto) 0.1 0.0-2.0 % Neutrophils # (Auto) 9.7 H 1.6-8.6 10 ^3/uL Lymphocytes # (Auto) 1.7 0.4-5.4 10 ^3/uL Monocytes # (Auto) 0.9 0-1.3 10 ^3/uL Eosinophils # (Auto) 0 0-0.8 10 ^3/uL Basophils # (Auto) 0 0-0.2 10 ^3/uL Nucleated Red Blood Cells 0.0 % Sodium Level 135 #L 136-145 mmol/L Potassium Level 4.0 3.5-5.1 mmol/L Chloride Level 107 98-107 mmol/L Carbon Dioxide Level 18 L 20-31 mmol/L Anion Gap 10 5-15 Blood Urea Nitrogen 35 H 9-23 mg/dL Creatinine 1.25 H 0.550-1.02 mg/dL Glomerular Filtration Rate Calc 43 >90 mL/min BUN/Creatinine Ratio 28.0 H 10.0-20.0 Serum Glucose 150 H 74-106 mg/dL Calcium Level 9.2 8.7-10.4 mg/dL Hemoglobin A1c 7.1 H <5.7 % A1C Total Bilirubin 0.3 0.2-1.0 mg/dL Aspartate Amino Transferase (AST) 92 H 13-40 U/L Alanine Aminotransferase (ALT) 58 H 7-40 U/L Alkaline Phosphatase 87 46-116 U/L Total Protein 6.0 5.7-8.2 g/dL Albumin 3.4 3.2-4.8 g/dL Urine Color Light-yellow Yellow Urine Clarity Clear Clear Urine pH 5.5 5.0-9.0 Urine Specific [place] 1.018 1.001-1.035 Urine Protein Negative Negative Urine Ketones 2+ H Negative Urine Blood Negative Negative /uL Urine Nitrite Negative Negative Urine Bilirubin Negative Negative Urine Urobilinogen Normal Negative mg/dL Urine Leukocyte Esterase Trace Negative /uL Urine RBC 1 0 - 4 /hpf Urine WBC 16 0 - 5 /hpf Urine Squamous Epithelial Cells Few <5 /hpf Urine Bacteria None seen None Seen /hpf Urine Glucose 4+ H Normal mg/dL Test 07/03/24 17:46 07/03/24 11:48 Range/Units Influenza Type A Antigen Negative Negative Influenza Type B Antigen Negative Negative SARS-CoV-2 Antigen (Rapid) Negative NEGATIVE Troponin I High Sensitivity 9 </=34 ng/L Assessment Impression: Acute on chronic hypoxic respiratory failure Dependence on supplemental oxygen AE COPD Pneumonia, likely gram negative Atelectasis Plan: Supplemental oxygen 2 LPM NC Titrate to keep O2 sats above 92%. Taper O2 as tolerated. Continue bronchodilators/Pulmicort Continue antibiotics Follow up cultures Incentive spirometry Stop IV fluids at 100 ml/hr. Monitor renal function. Monitor electrolytes. Supplement as necessary. Monitor ins and outs. Accu-Cheks, ISS DVT prophylaxis - Lovenox. Prognosis: Poor given patient's multiple co-morbidities. Rest of plan per hospitalist and other consultants. Thank you, ELLIE Ortega, for allowing me to participate in this patient's care. Further recommendations will depend on the patient's clinical course. Please do not hesitate to contact me if you have any questions or concerns. This medical document was created using an electronic medical record system with [email or web address] dictation system. Although these documentations are being carefully reviewed, there may still be some phonetic and typographical changes. The errors are purely typographical, due to imperfection on the software program, and do not reflect any compromise in the patient's medical care. Plan discussed with: Patient, Other (CRISTIAN Mansfield/ELLIE Ortega/) KIAH MAURER MD Jul 05, 2024 23:14
[2024-07-06] VITALS (17 sets, daily range): BP systolic 109–148; BP diastolic 42–57; PULSE 64–95; RESP 14–18; TEMP 97.5–98.4; O2SAT 90–100
[2024-07-06 06:44] LABS: Basophils # (auto) 0 10 ^3/uL (0-0.2); Basophils % (auto) 0.1 % (0.0-2.0); Eosinophils # (auto) 0 10 ^3/uL (0-0.8); Eosinophils % (auto) 0.5 % (0.0-7.0); Hematocrit 29.9 % (36.0-46.0); Hemoglobin 10.1 g/dL (12.2-16.2); Lymphocytes # (auto) 1.5 10 ^3/uL (0.4-5.4); Lymphocytes % (auto) 15.6 % (10.0-50.0); Mean Corpuscular Hemoglobin 29.2 pg (28.0-32.0); Mean Corpuscular Hgb Conc. 33.7 g/dL (32.0-36.0); Mean Corpuscular Volume 86.7 fL (80.0-100.0); Monocytes # (auto) 0.8 10 ^3/uL (0-1.3); Monocytes % (auto) 8.2 % (0.0-12.0); Neutrophils # (auto) 7.1 10 ^3/uL (1.6-8.6); Neutrophils % (auto) 75.6 % (37.0-80.0); Nucleated Red Blood Cells % 0.1 %; Platelet Count (auto) 347 10^3/uL (140-450); Red Blood Cells 3.45 10^6/uL (4.0-5.20); Red Cell Distribution Width 15.5 % (11.8-14.3); White Blood Cell 9.3 10^3/uL (4.4-10.8)
[2024-07-06 06:53] LABS: Anion Gap 7 (5-15); Carbon Dioxide 22 mmol/L (20-31); Potassium 4.5 mmol/L (3.5-5.1); Sodium 137 mmol/L (136-145)
[2024-07-06 06:54] LABS: Calcium 9.6 mg/dL (8.7-10.4)
[2024-07-06 06:59] LABS: BUN/Creatinine Ratio 24.5 (10.0-20.0)
[2024-07-06 07:01] LABS: Blood Urea Nitrogen 24 mg/dL (9-23); Chloride 108 mmol/L (98-107); Glucose 159 mg/dL (74-106)
--- NOTE | 2024-07-06 17:07 | DVHPN2 ---
Subjective Patient reports that her shortness of breath has improved. Reviewed: Care Plan, H&P, Labs, Medications Changes from previous H/P or p: No Changes General: Per HPI Eyes: No Pain, No Vision change, No Conjunctivae inflammation, No Eyelid inflammation, No Other, No Redness ENT: No Ear pain, No Ear discharge, No Nose pain, No Nose discharge, No Nose congestion, No Mouth pain, No Mouth swelling, No Throat pain, No Throat swelling, No Other Cardiovascular: No Chest Pain, No Palpitations, No Orthopnea, No Paroxysmal Noc. Dyspnea, No Edema, No Lt Headedness, No Other Respiratory: Cough; No Dry, No Shortness of breath, No SOB with excertion, No Wheezing, No Hemoptysis, No Pleuritic Pain, No Sputum; Other (Congestion) Gastrointestinal: No Nausea, No Vomiting, No Abdominal Pain, No Diarrhea, No Constipation, No Melena, No Hematochezia, No Other Genitourinary: No Dysuria, No Frequency, No Incontinence, No Hematuria, No Retention, No Other Musculoskeletal: No other, No neck pain, No shoulder pain, No arm pain, No back pain, No hand pain, No leg pain, No foot pain Skin: No Rash, No Lesions, No Jaundice, No Bruising, No Other Objective Vitals Vital Signs Date Time Temp Pulse Resp B/P (MAP) Pulse Ox O2 Delivery O2 Flow Rate FiO2 07/06/24 12:03 68 16 100 07/06/24 10:00 Room Air* 0 21 07/06/24 05:00 98.2 148/42 (77) 98.2 Intake/Output Intake and Output 07/06/24 07:00 Intake Total 2690 ml Balance 2690 ml Intake Oral 1640 ml IV Total 1050 ml # Voids 8 General Appearance: Alert, Oriented X3, Cooperative, No acute distress HEENT: Atraumatic, PERRLA Lungs: Clear to auscultation, Normal air movement Cardiovascular: Normal S1, Normal S2 Abdomen: Normal bowel sounds, Soft, No tenderness Musculoskeletal: Normal sensory function, Normal motor function Neuro: Normal gait, Normal speech Skin: Dry, Intact, Warm Psych/Mental Status: Mental status NL, Mood NL Medications Current Medications Medications Dose Ordered Sig/Donte Route Start Time Stop Time Status Last Admin Dose Admin Ceftriaxone Sodium 50 ml @ 100 mls/hr DAILY@09 IV 07/04/24 09:00 07/06/24 09:43 100 MLS/HR Albuterol 2.5 mg Q6HWA NEB 07/03/24 18:00 07/06/24 11:58 2.5 MG Albuterol 2.5 mg Q4HPRN PRN NEB 07/03/24 16:15 Ipratropium [place] 0.5 mg Q6HWA NEB 07/03/24 18:00 07/06/24 11:58 0.5 MG Ipratropium [place] 0.5 mg Q4HPRN PRN NEB 07/03/24 16:15 Ondansetron HCl 4 mg Q4HP PRN IV 07/03/24 16:15 Acetaminophen 650 mg Q6HP PRN PO 07/03/24 16:15 07/06/24 10:38 650 MG Nitroglycerin 0.4 mg Q5MINP PRN SL 07/03/24 16:15 Morphine Sulfate 2 mg Q30M PRN IV 07/03/24 16:15 Enoxaparin Sodium 30 mg DAILY SC 07/04/24 10:00 07/06/24 09:43 30 MG Budesonide 0.5 mg BID NEB 07/04/24 22:00 07/06/24 06:56 0.5 MG Diagnostic Test (Pha) 1 strip ACHS 07/05/24 17:00 07/06/24 12:31 1 STRIP Insulin Human Regular HS SC 07/05/24 22:00 07/05/24 21:57 6 UNITS Insulin Human Regular AC SC 07/05/24 17:00 07/06/24 12:32 6 UNITS Dextrose 50 ml UD PRN IV 07/05/24 15:30 Laboratory Results Laboratory Tests 07/06/24 04:53 Chemistry Test 07/06/24 04:53 Calcium Level 9.6 mg/dL (8.7-10.4) Urinalysis Test 07/03/24 18:33 Urine Color Light-yellow (Yellow) Urine Clarity Clear (Clear) Urine pH 5.5 (5.0-9.0) Urine Specific [place] 1.018 (1.001-1.035) Urine Protein Negative (Negative) Urine Ketones 2+ (Negative) H Urine Blood Negative /uL (Negative) Urine Nitrite Negative (Negative) Urine Bilirubin Negative (Negative) Urine Urobilinogen Normal mg/dL (Negative) Urine Leukocyte Esterase Trace /uL (Negative) Urine RBC 1 /hpf (0 - 4) Urine WBC 16 /hpf (0 - 5) Urine Squamous Epithelial Cells Few /hpf (<5) Urine Bacteria None seen /hpf (None Seen) Urine Glucose 4+ mg/dL (Normal) H Labs and/or images reviewed: Labs reviewed by me, Image(s) reviewed by me Assessment/Plan Assessment/Plan Impression: -acute on chronic hypoxic respiratory failure -COPD with exacerbation -rule out community-acquired pneumonia, Gram-positive/Gram-negative etiology -coronary artery disease with previous CABG -diabetes mellitus -severe hyperglycemia, secondary to Solu-Medrol -hyperkalemia Plan: -events: Patient now on room air. Patient ambulating. Further discussion with the patient reveals that she has had problems with swallowing, choking, in addition to having previous dilatation of the esophageal strictures. Chest x- ray reveals probable aspiration pneumonia. -GI consultation for possible EGD with evaluation of stricture and dilatation. -NPO after midnight -physical therapy consultation -bronchodilators, add Pulmicort -insulin sliding scale -pulmonology consultation -repeat labs and chest x-ray in a.m. Total time spent with patient discussing and formulating plan of care: 35 minutes. This medical document was created using an electronic medical record system with [email or web address] dictation system. Although this document has been carefully reviewed, there may still be some phonetic and typographical errors. These areas are purely typographical due to imperfections of the software programs, and do not reflect any compromise in the patient's medical care. Plan discussed with: Patient, Other (RN, gastroenterology) My Orders Orders - VIRA ARREAGA NP Procedure Category Date Status Time * Gi [employer] CONS 07/06/24 Transmitted 15:58 Consistent DIET 07/06/24 Transmitted Carb(Ccho)Diabetes Dinner Npo After Midnight DIET 07/06/24 Transmitted Dinner Date of Service: Jul 06, 2024 Billing Provider: VIRA ARREAGA NP Common Visit Codes: [id number] INP/OBS CARE(HIGH) VIRA ARRAEGA NP Jul 06, 2024 17:07
--- NOTE | 2024-07-06 17:30 | DVHCONRES ---
Date Seen: Jul 06, 2024 Resident Creating Document: PEPITO HUDDLESTON RESIDENT Referring Physician Jordan ARGUETA Reason for Consultation ? esophageal stricture. Aspiration PNA History of Present Illness Meenakshi Singleton, an 84-year-old female with a complex medical history including C AD, hypertension, hyperlipidemia, diabetes, COPD, and more, presents to the ED with shortness of breath, cough, congestion, and fever for one week. She lives with sick family members, uses 2 L of oxygen at home, and has a history of falls. She denies chest pain, chills, nausea, and other symptoms, and has no history of smoking, drinking, or drug use. Past Medical History CAD, HTN, hyperipidemia, COPD, GERD, Irritable bowel disease, Depression, Grade B and candidal esophagitis Past Surgical History CABG, Other (Bilateral cataracts) Family History: Diabetes mellitus G8 MOTHER G8 FATHER FH: kidney failure G8 FATHER Family History Noncontributory Social History Denies lifetime history of alcohol, smoking, recreational drug use. Patient lives with family at home. Patients PCP is MD Delgado Patient uses a walker for DME, functionally independent. Patient has both and Advanced Directive and Medical POA who are her daughters. Allergies: Coded Allergies: Erythromycin (Verified Allergy, Severe, 03/23/23) Home Meds Active Scripts Pantoprazole Sodium Sesquihydr (Pantoprazole Sodium) 40 Mg Tab, 40 MG PO DAILY@0600 for 90 Days, #90 TAB Prov:HOLLIE LOWE RESIDENT 12/27/23 Reported Medications Fluticasone Furoate (Inhalatio (Arnuity Ellipta) 200 Mcg/Act Inh, 200 MCG IN DAILY, INHALER 07/04/24 Metformin Hydrochloride (Metformin Hcl) 500 Mg Tab, 750 MG PO DAILY, TAB 07/04/24 Pyridoxine HCl (Vitamin B6) 100 Mg Tab, 100 MG PO DAILY, #1 TAB 07/04/24 Cyanocobalamin (Vitamin B 12) 500 Mcg Odette, 1000 MCG PO DAILY for 1 Day, #1 ODETTE 07/04/24 Nitroglycerin (Intra-Anal) (Nitroglycerin) 0.4 % Oin, 0.4 % HI, OIN 07/04/24 Magnesium Oxide (MAGNESIUM OXIDE) 400 Mg Tab, 400 MG OR, TAB 07/04/24 Fluticasone Furoate (Inhalatio (Arnuity Ellipta) 200 Mcg/Act Inh, 200 MCG IN, INHALER 07/04/24 Atorvastatin Calcium (ATORVASTATIN CALCIUM) 40 Mg Tab, 1 TAB PO DAILY 12/23/23 Metoprolol Tartrate (Lopressor) 25 Mg Tb, 1 TAB PO BID 12/23/23 Aspirin (Aspirin Low Dose) 81 Mg Tab, 1 TAB PO DAILY 12/23/23 Candesartan Cilexetil (CANDESARTAN CILEXETIL) 32 Mg Tab, 1 TAB PO DAILY 12/23/23 Dapagliflozin Propanediol (Farxiga) 10 Mg Tab, 1 TAB PO DAILY 12/23/23 Discontinued Reported Medications Metformin Hydrochloride (Metformin Hcl) 850 Mg Tab, 750 TAB PO BID, #180 TAB 3 Refills 07/04/24 Fluticasone Furoate (Inhalatio (Arnuity Ellipta) 200 Mcg/Act Inh, 1 PUFF INH DAILY 12/23/23 Ranolazine (Ranolazine ER) 500 Mg Tab, 1 TAB PO BID 12/23/23 Fluoxetine HCl (Fluoxetine HCl) 20 Mg Cap, 1 CAP PO DAILY 12/23/23 Current Medications Current Medications Medications (Trade) Dose Ordered Sig/Donte Route PRN Reason Start Time Stop Time Status Last Admin Insulin Human Regular (InsuLIN R) HS SC 07/05/24 22:00 07/05/24 21:57 Review of Systems CONSTITUTIONAL: Fever, night sweats, weight loss, Lymphadenopathy, ecchymoses, fatigue: Negative DERMATOLOGIC: Rash, New/growing/changing skin lesions: Negative HEENT: Vision change, eye pain, Rhinorrhea, sinus pain, epistaxis, dysphagia, odynophagia, globus sensation, Change in hearing, tinnitus, vertigo, otalgia, Dental problems, oral ulcers or lesions: : Negative Hard of hearing: Positive ENDOCRINE: Weight change, heat or cold intolerance, tremor, insomnia, neck pain or swelling, Polyuria, polydipsia, polyphagia, Abnormal hair growth, change in nails: Negative CARDIOVASCULAR: Chest pain, palpitations, syncope, Edema, cyanosis, claudication, Orthopnea, paroxysmal nocturnal dyspnea: Negative PULMONARY: hemoptysis, wheezing, chest pain : Negative Shortness of breath, dyspnea with exertion, Cough: Positive, Improved GI: Nausea, vomiting, diarrhea, melena, hematochezia, Change in appetite, abdominal pain, change in bowel habits or stools: Negative : Dysuria, frequency, urgency, Urinary incontinence, hematuria, foamy urine, nocturia, Change in libido, erectile dysfunction, Change in menses, dysmenorrhea, dyspaerunia, pelvic pain: : Negative MUSCULOSKELETAL: Joint swelling or pain, muscle pain, back pain: : Negative NEUROLOGIC: Headache, scotoma, Change in smell or taste, change in facial muscles, Muscle weakness, paresthesias, anesthesia, Ataxia, change in speech: Negative PSYCHIATRIC: Depression, anxiety, hallucinations, adilson, suicidal/homicidal thoughts, Binging, purging: Negative Vital Signs Vital Signs Date Time Temp Pulse Resp B/P (MAP) Pulse Ox O2 Delivery O2 Flow Rate FiO2 07/06/24 12:03 68 16 100 07/06/24 10:00 Room Air* 0 21 07/06/24 05:00 98.2 148/42 (77) 98.2 Physical Exam GENERAL APPEARANCE: Well developed, well nourished, alert and cooperative, and appears to be in no HEENT: Within normal limit, oral mucosa dry. CARDIAC: Normal S1 and S2. No S3, S4 or murmurs. Rhythm is regular. There is no peripheral edema, cyanosis or pallor. Extremities are warm and well perfused. Capillary refill is less than 2 seconds. No carotid bruits. LUNGS: Clear to auscultation and percussion without rales, rhonchi, wheezing or diminished breath sounds. ABDOMEN: Positive bowel sounds. Soft, nondistended, nontender. No guarding or rebound. No masses. MUSKULOSKELETAL: Adequately aligned spine. ROM intact spine and extremities. No joint erythema or tenderness. Normal muscular development. Normal gait. NEUROLOGICAL: CN II-XII intact. Strength and sensation symmetric and intact throughout. Reflexes 2+ throughout. Cerebellar testing normal. SKIN: Skin normal color, texture and turgor with no lesions or eruptions. PSYCHIATRIC: The mental examination revealed the patient was oriented to person, place, and time. The patient was able to demonstrate good judgement and reason, without hallucinations, abnormal affect or abnormal behaviors during the examination. Patient is not suicidal. Labs/Diagnostic Data Labs Test 07/06/24 12:07 07/06/24 04:53 07/04/24 06:19 07/03/24 18:33 Range/Units POC Glucose 205 H 70-106 mg/dl White Blood Count 9.3 4.4-10.8 10^3/uL Red Blood Count 3.45 L 4.0-5.20 10^6/uL Hemoglobin 10.1 L 12.2-16.2 g/dL Hematocrit 29.9 L 36.0-46.0 % Mean Corpuscular Volume 86.7 80.0-100.0 fL Mean Corpuscular Hemoglobin 29.2 28.0-32.0 pg Mean Corpuscular Hemoglobin Concent 33.7 32.0-36.0 g/dL Red Cell Distribution Width 15.5 H 11.8-14.3 % Platelet Count 347 140-450 10^3/uL Mean Platelet Volume 8.0 6.9-10.8 fL Neutrophils (%) (Auto) 75.6 37.0-80.0 % Lymphocytes (%) (Auto) 15.6 10.0-50.0 % Monocytes (%) (Auto) 8.2 0.0-12.0 % Eosinophils (%) (Auto) 0.5 0.0-7.0 % Basophils (%) (Auto) 0.1 0.0-2.0 % Neutrophils # (Auto) 7.1 1.6-8.6 10 ^3/uL Lymphocytes # (Auto) 1.5 0.4-5.4 10 ^3/uL Monocytes # (Auto) 0.8 0-1.3 10 ^3/uL Eosinophils # (Auto) 0 0-0.8 10 ^3/uL Basophils # (Auto) 0 0-0.2 10 ^3/uL Nucleated Red Blood Cells 0.1 % Sodium Level 137 136-145 mmol/L Potassium Level 4.5 3.5-5.1 mmol/L Chloride Level 108 H 98-107 mmol/L Carbon Dioxide Level 22 20-31 mmol/L Anion Gap 7 5-15 Blood Urea Nitrogen 24 #H 9-23 mg/dL Creatinine 0.98 0.550-1.02 mg/dL Glomerular Filtration Rate Calc 57 >90 mL/min BUN/Creatinine Ratio 24.5 H 10.0-20.0 Serum Glucose 159 H 74-106 mg/dL Calcium Level 9.6 8.7-10.4 mg/dL Hemoglobin A1c 7.1 H <5.7 % A1C Total Bilirubin 0.3 0.2-1.0 mg/dL Aspartate Amino Transferase (AST) 92 H 13-40 U/L Alanine Aminotransferase (ALT) 58 H 7-40 U/L Alkaline Phosphatase 87 46-116 U/L Total Protein 6.0 5.7-8.2 g/dL Albumin 3.4 3.2-4.8 g/dL Urine Color Light-yellow Yellow Urine Clarity Clear Clear Urine pH 5.5 5.0-9.0 Urine Specific [place] 1.018 1.001-1.035 Urine Protein Negative Negative Urine Ketones 2+ H Negative Urine Blood Negative Negative /uL Urine Nitrite Negative Negative Urine Bilirubin Negative Negative Urine Urobilinogen Normal Negative mg/dL Urine Leukocyte Esterase Trace Negative /uL Urine RBC 1 0 - 4 /hpf Urine WBC 16 0 - 5 /hpf Urine Squamous Epithelial Cells Few <5 /hpf Urine Bacteria None seen None Seen /hpf Urine Glucose 4+ H Normal mg/dL Test 07/03/24 17:46 07/03/24 11:48 Range/Units Influenza Type A Antigen Negative Negative Influenza Type B Antigen Negative Negative SARS-CoV-2 Antigen (Rapid) Negative NEGATIVE Troponin I High Sensitivity 9 </=34 ng/L CHEST RADIOGRAPH Indication: sob Technique: Single frontal view of the chest was obtained COMPARISON: XY CHEST PORTABLE on DOS: 05/12/23 FINDINGS: Lines and Tubes: None Lungs: Minimally increased markings right mid lung field peripherally. Persistent scarring at the medial right lung base. No consolidation Linear atelectatic changes left midlung field peripherally Pleura: No effusion. No pneumothorax. Cardiomediastinal contours: Unremarkable Bones: Unremarkable IMPRESSION: 1. Minimally increased lung markings right mid lung field peripherally without consolidation DATE OF OPERATION: 03/23/23 PROCEDURE: Upper Endoscopy with biopsy. PREOPERATIVE INDICATION: The patient is a 82 -year-old female undergoing endoscopy for foreign body in esophagus and throat discomfort POSTOPERATIVE DIAGNOSES: 1. The meat that had been lodged in the esophagus had already passed into the stomach and a moderate amount of food was seen in the proximal and the distal stomach 2. 1 cm sliding-type hiatal hernia with slightly irregular squamocolumnar junction grade B erosive esophagitis 3. Patient had evidence of mild candidal esophagitis with some whitish- yellowish plaques seen in the proximal to mid esophagus from which biopsies were obtained PROCEDURE PERFORMED BY: Nohemi Bustillos GI NURSE: Adilene SCOPE: Olympus videoendoscope. ASA CLASS: 2 PREOPERATIVE MEDICATIONS: Versed 1 mg, Fentanyl 50 mcg, Benadryl 50 mg I administered moderate sedation throughout this _9_ minutes procedure. An independent trained observer pushed medications at my direction, and monitored the patient's level of consciousness and physiological status throughout. PROCEDURE IN DETAIL: After obtaining an informed consent, the patient was placed on left lateral decubitus position. The patient was then sedated with the above medications. A bite block was placed between she teeth. The endoscope was then passed through the oropharynx, into the esophagus, and into the distal stomach. I was not able to advance the endoscope through the pylorus and up to the duodenum because there was a large amount of food debris that was sitting in the body and the antrum of the stomach The previously lodged meat in the esophagus had spontaneously gone down into the proximal stomach where it was seen. Patient had an underlying 1 cm sliding-type hiatal hernia with acute grade B erosive esophagitis and some distal esophageal ulcerations In the mid to proximal esophagus the patient had whitish-yellowish plaques that were suspicious for candidal esophagitis. Esophageal biopsies were obtained. The remaining proximal esophagus and oropha rynx were unremarkable. The patient tolerated the procedure well without difficulty. COMPLICATIONS : None SPECIMENS: Duodenal biopsies Gastric biopsies DISPOSITION: Stable Discharge to home PLAN: 1. Await for biopsy result 2. Will place pt on Protonix 40 mg p.o. daily 3. Full liquid diet today advance to soft mechanical when a.m. note 4.. Hold aspirin for 3-5 days 5. Trial of nystatin swish and swallow 5 mL p.o. 3 times daily 6. Recommend outpatient follow-up in 6 to 8 weeks and consider repeat endoscopy in near future and colonoscopy for evaluation of anemia NOHEMI BUSTILLOS MD Mar 23, 2023 16:05 DICTATED BY:NOHEMI BUSTILLOS MD DICTATED DATE/TIME:03/23/23 1605 ELECTRONICALLY SIGNED BY:NOHEMI BUSTILLOS MD 03/23/23 1608 ELECTRONICALLY CO-SIGNED BY: Assessment GI Assessment/impression: #History of grade B and candidal esophagitis noted in last EGD 03/23/[address] Bustillos. #Chronic IBS #Chronic GERD #likely esophageal stricture --------- #Acute on chronic COPD exacerbation likely suspecting pneumonia #Leukocytosis likely secondary to pneumonia #ELVIRA due to VMN #Hyponatremia #COPD #acute on chronic hypoxic respiratory failure #chronic hypoxic respiratory failure, Oxygen dependent-patient on 2 L nasal cannula at home #Diabetes uncontrolled #History of CAD status post CABG on September 23, 2000 at [facility] per patient #Chronic hypertension #hyperkalemia #possible aspiration pneumonia due to esophageal stricture, right lower lobe. #hyperlipidemia #Chronic anxiety/depression Plan/Recommendation GI Plan: #Medications: pantoprazole 40 mg iv daily > when dysphagia ruled out change to oral, continue. #Labs: Daily CBC/H&H trend. Given candidiasis rule out HIV. Check INR-PT #Procedure: In-hospital EGD, NPO after midnight. Dilatation/biopsy as needed. Will consider as schedule permits. #Others: please avoid NSAIDs, alcohol, spicy, highly acidic and caustic diets. Posture maintain upright to 2-3 hours after meal. Please rinse your mouth after using the inhalers/ nebulizers. If positive for candidiasis will consider Fluco nazole 400 mg IV on day 1 then 200 to 400 mg daily, Duration of therapy is 14 to 21 days for initial treatment. For refractory disease, the duration is extended to 28 days. #please scheduled follow up with GI as outpatient with Dr. Salvador Bustillos. Thank you so much for the opportunity to consult on your patient. GI team will follow the patient. In case of any questions or concerns please feel free to reach out. Case and action plan discussed with Dr. Nohemi Bustillos. Complex care planning needed total 41/43/45/47/49 minutes of detailed discussion. The patient and caregiver team agreed to the plan. Plan discussed with: Patient, Daughter, Other (Primary team) PEPITO HUDDLESTON RESIDENT Jul 06, 2024 17:30
[2024-07-06] MEDS: PANTOPRAZOLE 40 MG/10 ML VIAL INJ IV SCH (18:35)
[2024-07-06 19:40] LABS: INR 1.02 (0.9-1.15); Prothrombin Time 10.8 sec (9.3-11.8)
[2024-07-07] VITALS (10 sets, daily range): BP systolic 110–156; BP diastolic 44–56; PULSE 75–96; RESP 16–18; TEMP 98.2–99.1; O2SAT 92–100
[2024-07-07] MEDS: MORPHINE SULFATE INJ 2 MG/ml SYRG IV PRN (03:34)
--- NOTE | 2024-07-07 03:52 | ECG ---
[facility] Test Date: 2024-07-07 Test Time: 03:30:49 Pat Name: JHONATAN ARAMBULA Department: Respiratoy Room: 0248 A Gender: F [employer] Outfitter: ROLAN : 1940 Requested By: ALEXIS NICHOLE Order Number: [id number] Reading MD: Adam Up Measurements Intervals [place] Rate: 85 P: 68 HI: 161 QRS: -6 QRSD: 83 T: -3 QT: 366 QTc: 436 Interpretive Statements Sinus rhythm Minimal ST depression Baseline wander in lead(s) V1 Electronically Signed On 07-07-2024 8:49:47 PST by Adam Up Please click the below link to view image of tracing.
[2024-07-07] MEDS ORDERED: MIDAZOLAM HCL 2MG/2ML 2ml VIAL (1mg/ml) ONE (08:21)
[2024-07-07] MEDS ORDERED: fentaNYL CITRATE 100 MCG/2 ML VL ONE (08:21)
[2024-07-07] MEDS ORDERED: PROPOFOL 10 MG/ML 20 ML IV ONE (08:22)
[2024-07-07] MEDS ORDERED: LIDOCAINE 1% INJ PF 5ML AMP ONE (08:22)
[2024-07-07] MEDS ORDERED: ONDANSETRON HCL 4 MG/2 ML VIAL ONE (08:22)
[2024-07-07] MEDS ORDERED: GLYCOPYRROLATE 0.2 MG/ML 1ML VIAL ONE (08:22)
[2024-07-07] MEDS: ACCU-CHEK COMFORT CURVE STRIP VI ONE (08:45)
--- NOTE | 2024-07-07 08:54 | DVHOP2 ---
Operative Report DATE OF OPERATION: 07/07/24 PROCEDURE: Upper Endoscopy with biopsy and dilate esophagus unguided. PREOPERATIVE INDICATION: The patient is a 84 -year-old female undergoing endoscopy for oropharyngeal dysphagia POSTOPERATIVE DIAGNOSES: 1. 2 cm sliding-type hiatal hernia with no significant erosive esophagitis, no stricture and no evidence of candidal esophagitis at this time 2. Moderate gastritis with hyperemia erythema involving the entire stomach 3. Esophagus and GE junction dilated with Diane number [phone] PROCEDURE PERFORMED BY: Nohemi Bustillos GI NURSE: Fransisco SCOPE: Olympus videoendoscope. ASA CLASS: 3. PREOPERATIVE MEDICATIONS: Mac Dr. Francisco Javier doyle PROCEDURE IN DETAIL: After obtaining an informed consent, the patient was placed on left lateral decubitus position. The patient was then sedated with the above medications. A bite block was placed between her teeth. The endoscope was then passed through the oropharynx, into the esophagus, and through the stomach and pylorus up to the second and third part of the duodenum. The endoscope was then withdrawn. The 2nd and 3rd part of the duodenum and the duodenal bulb were normal. Duoden al biopsies were obtained. The pre-pyloric area antrum and body of the stomach showed moderate gastritis. On retroflexion the fundus cardia and angularis also were normal but there was gastritis Gastric antral biopsies were obtained and then biopsies were also obtained from the proximal stomach. The endoscope was then withdrawn into the distal esophagus. Patient had a 2 cm sliding-type hiatal hernia with no evidence of a stricture and a widely patent slight Schatzki's ring. The remaining distal and proximal esophagus and oropharynx were unremarkable There was no esophagitis no evidence of candidal esophagitis. There may have been some tertiary contractions of the esophagus due to her age. Esophagus was dilated with Diane number [phone] Repeat endoscopy confirmed adequate dilatation. There was no mucosal injury or bleeding. GE junction biopsies were obtained. The patient tolerated the procedure well without difficulty. COMPLICATIONS : None SPECIMENS: Duodenal biopsies Gastric biopsies Distal esophageal biopsies DISPOSITION: Stable Transfer to floor PLAN: 1. Await for biopsy result 2. Will place pt on Protonix 20 mg p.o. daily 3. Carafate 1 g p.o. twice a day 3. Resume GI soft diet advance as tolerated 5. Patient is cleared for discharge from GI point of view if she has can tolerate her diet 6. Patient encouraged to follow up in my office as an outpatient for ongoing GI management NOHEMI BUSTILLOS MD Jul 07, 2024 08:54
--- NOTE | 2024-07-07 10:51 | DVHDS2 ---
Discharge Summary Date of Admission Jul 03, 2024 at 16:11 Date of Discharge: Jul 07, 2024 Admitting Diagnosis Acute COPD exacerbation Labs/Diagnostic Data: Laboratory Results Test 07/07/24 08:41 07/06/24 18:59 07/06/24 04:53 07/04/24 06:19 POC Glucose 169 mg/dl (70-106) Prothrombin Time 10.8 sec (9.3-11.8) Prothrombin Time INR 1.02 (0.9-1.15) White Blood Count 9.3 10^3/uL (4.4-10.8) Red Blood Count 3.45 10^6/uL (4.0-5.20) Hemoglobin 10.1 g/dL (12.2-16.2) Hematocrit 29.9 % (36.0-46.0) Mean Corpuscular Volume 86.7 fL (80.0-100.0) Mean Corpuscular Hemoglobin 29.2 pg (28.0-32.0) Mean Corpuscular Hemoglobin Concent 33.7 g/dL (32.0-36.0) Red Cell Distribution Width 15.5 % (11.8-14.3) Platelet Count 347 10^3/uL (140-450) Mean Platelet Volume 8.0 fL (6.9-10.8) Neutrophils (%) (Auto) 75.6 % (37.0-80.0) Lymphocytes (%) (Auto) 15.6 % (10.0-50.0) Monocytes (%) (Auto) 8.2 % (0.0-12.0) Eosinophils (%) (Auto) 0.5 % (0.0-7.0) Basophils (%) (Auto) 0.1 % (0.0-2.0) Neutrophils # (Auto) 7.1 10 ^3/uL (1.6-8.6) Lymphocytes # (Auto) 1.5 10 ^3/uL (0.4-5.4) Monocytes # (Auto) 0.8 10 ^3/uL (0-1.3) Eosinophils # (Auto) 0 10 ^3/uL (0-0.8) Basophils # (Auto) 0 10 ^3/uL (0-0.2) Nucleated Red Blood Cells 0.1 % Sodium Level 137 mmol/L (136-145) Potassium Level 4.5 mmol/L (3.5-5.1) Chloride Level 108 mmol/L (98-107) Carbon Dioxide Level 22 mmol/L (20-31) Anion Gap 7 (5-15) Blood Urea Nitrogen 24 mg/dL (9-23) Creatinine 0.98 mg/dL (0.550-1.02) Glomerular Filtration Rate Calc 57 mL/min (>90) BUN/Creatinine Ratio 24.5 (10.0-20.0) Serum Glucose 159 mg/dL (74-106) Calcium Level 9.6 mg/dL (8.7-10.4) Hemoglobin A1c 7.1 % A1C (<5.7) Total Bilirubin 0.3 mg/dL (0.2-1.0) Aspartate Amino Transferase (AST) 92 U/L (13-40) Alanine Aminotransferase (ALT) 58 U/L (7-40) Alkaline Phosphatase 87 U/L (46-116) Total Protein 6.0 g/dL (5.7-8.2) Albumin 3.4 g/dL (3.2-4.8) Test 07/03/24 18:33 07/03/24 17:46 07/03/24 11:48 Urine Color Light-yellow (Yellow) Urine Clarity Clear (Clear) Urine pH 5.5 (5.0-9.0) Urine Specific [place] 1.018 (1.001-1.035) Urine Protein Negative (Negative) Urine Ketones 2+ (Negative) Urine Blood Negative /uL (Negative) Urine Nitrite Negative (Negative) Urine Bilirubin Negative (Negative) Urine Urobilinogen Normal mg/dL (Negative) Urine Leukocyte Esterase Trace /uL (Negative) Urine RBC 1 /hpf (0 - 4) Urine WBC 16 /hpf (0 - 5) Urine Squamous Epithelial Cells Few /hpf (<5) Urine Bacteria None seen /hpf (None Seen) Urine Glucose 4+ mg/dL (Normal) Influenza Type A Antigen Negative (Negative) Influenza Type B Antigen Negative (Negative) SARS-CoV-2 Antigen (Rapid) Negative (NEGATIVE) Troponin I High Sensitivity 9 ng/L (</=34) Other Laboratory Tests 07/06/24 04:53 Brief Hx & Hospital Course: History of Present Illness Meenakshi Singleton is an 84-year-old female with past medical history of CAD status post CABG on September 23, 2000 at [facility], hypertension, hyperlipidemia, diabetes, COPD, IBS, GERD, depression, grade B and candidal esophagitis, and bilateral cataracts who presents to the ED for shortness of breath, cough, congestion, and fever x1 week. Patient reports that there is sick family at home who she is surrounded by. Patient also reports that she uses 2 L of oxygen via nasal cannula at home. Patient reports that she uses a front wheel walker to ambulate but that she has multiple history of falls. Patient also reports that she was adopted by a smoker parents who smoked 3 packs of cigarettes per day. Patient denies any drinking, smoking, and illicit drug use. Patient denies chest pain, chills, nausea, vomiting, diarrhea, abdominal pain, lightheadedness, weakness, and dizziness. Course of hospitalization: Patient was weaned off of oxygen without any issues. Chest x-ray did reveal right middle and upper lobe infiltrates, representing probable aspiration pneumonia. After further discussion with the patient, she states that she does have difficulty swallowing on occasion in addition to having a cough after eating food. Patient also reports having a history of esophageal strictures. GI consultation was obtained. Patient underwent EGD today, with dilatation. Also noted was erythema to her stomach in the entirety. Patient will be discharged home later today, with continued treatment of her pneumonia with Augmentin 875 mg p.o. twice a day, as well as Protonix 40 mg p.o. twice a day, and Carafate 1 g tablet twice a day. She was instructed to follow up with her PCP in 1-2 weeks as well as follow up for biopsy results of her EGD with Dr. Salvador Hwang in 2-3 weeks. She was agreeable with discharge plan. All questions answered. Physical examination General: Alert and Oriented x3. No acute distress. Well-nourished. Eyes: EOMI. Anicteric. HENT: Moist mucous membranes. Lungs: Clear to auscultation bilaterally. No accessory muscle use. Cardiovascular: Regular rate and rhythm. No murmur. No JVD. Abdomen: Soft, non-tender and non-distended. No palpable masses. Extremities: No edema. Non-tender. Skin: No rashes or lesions. Warm. Neurologic: No focal neurological deficits. CN II-XII grossly intact, but not individually tested. Psychiatric: Cooperative. Appropriate mood and affect. Total time spent with patient discussing and formulating plan of care: 35 minutes. This medical document was created using an electronic medical record system with [employer] dictation system. Although this document has been carefully reviewed, there may still be some phonetic and typographical errors. These areas are purely typographical due to imperfections of the software programs, and do not reflect any compromise in the patient's medical care. Consults/Reason for consult Gastroenterology: Questionable esophageal stricture Operations or Procedures EGD: 07/07/2024 Condition at Discharge: Fair Final Diagnosis/Problems List Aspiration pneumonia with acute hypoxic respiratory failure Secondary Diagnosis: -acute on chronic hypoxic respiratory failure -COPD with exacerbation -ruled out community-acquired pneumonia, Gram-positive/Gram-negative etiology . Aspiration pneumonia -coronary artery disease with previous CABG -diabetes mellitus -severe hyperglycemia, secondary to Solu-Medrol -hyperkalemia -gastritis Discharge Disposition: Home Discharge Instruct/Medications Diet: Cardiac 2g Na,low cholest Activity: No Restrictions, As Tolerated Follow Up/Referral: Follow up with PCP in 1-2 weeks Follow up with Gastroenterology in 2-3 weeks Medications: Augmentin 875 mg p.o. twice a day x7 days Continue all previous home medication 36 Discharge Statement: "Patient was advised to return to the ER or call 911 if any headaches, dizziness, shortness of breath, chest pain, abdominal pain, bleeding, fevers, or worsening of medical condition. Patient was counseled about treatment plan, medications, possible side effects, patientverbalized understanding. All questions were answered to the best of my ability. This discharge took greater then 30 minutes in planning, reviewing documentation, counseling the patient, and discussing with other team members." ASSESSMENT ASSESSMENT Assessment Aspiration pneumonia with acute hypoxic respiratory failure Date of Service: Jul 07, 2024 Billing Provider: VIRA ARREAGA NP Common Visit Codes: 13718-UAA/OBS DISCH DAY >30min VIRA ARREAGA NP Jul 07, 2024 10:51
[2024-07-07] MEDS ORDERED: AUG875T PO (11:42)
[2024-07-07] MEDS ORDERED: SUCR1TAB31 OR (11:42)
[2024-07-07] MEDS ORDERED: PANT40TA2 PO (11:42)
--- NOTE | 2024-07-07 12:21 | DVHPN2 ---
Progress Note - Dictate Date Seen: Jul 06, 2024 Medical Necessity Reason Pt with a Central, PICC or Fol: No Subjective Patient seen and examined at bedside. On supplemental oxygen. Overnight events reviewed. vital signs Vital Sign Date Time Temp Pulse Resp B/P (MAP) Pulse Ox O2 Delivery O2 Flow Rate FiO2 07/07/24 11:39 78 18 100 07/07/24 11:32 Room Air 07/07/24 11:32 0 21 07/07/24 09:10 107/53 (71) 07/07/24 09:00 99.1 99.1 Total Intake and Output 07/06/24 07/06/24 07/07/24 15:00 23:00 07:00 Intake Total 530 ml 800 ml 450 ml Output Total 500 ml Balance 530 ml 300 ml 450 ml medications Current Medications Medications Dose Ordered Sig/Donte Route Start Time Stop Time Status Last Admin Dose Admin Ceftriaxone Sodium 50 ml @ 100 mls/hr DAILY@09 IV 07/04/24 09:00 07/07/24 09:17 100 MLS/HR Albuterol 2.5 mg Q6HWA NEB 07/03/24 18:00 07/07/24 11:32 2.5 MG Albuterol 2.5 mg Q4HPRN PRN NEB 07/03/24 16:15 Ipratropium [place] 0.5 mg Q6HWA NEB 07/03/24 18:00 07/07/24 11:32 0.5 MG Ipratropium [place] 0.5 mg Q4HPRN PRN NEB 07/03/24 16:15 Ondansetron HCl 4 mg Q4HP PRN IV 07/03/24 16:15 Acetaminophen 650 mg Q6HP PRN PO 07/03/24 16:15 07/06/24 10:38 650 MG Nitroglycerin 0.4 mg Q5MINP PRN SL 07/03/24 16:15 Morphine Sulfate 2 mg Q30M PRN IV 07/03/24 16:15 07/07/24 03:34 2 MG Enoxaparin Sodium 30 mg DAILY SC 07/04/24 10:00 07/07/24 09:17 30 MG Budesonide 0.5 mg BID NEB 07/04/24 22:00 07/07/24 06:14 0.5 MG Diagnostic Test (Pha) 1 strip ACHS 07/05/24 17:00 07/07/24 06:05 1 STRIP Insulin Human Regular HS SC 07/05/24 22:00 07/06/24 21:21 6 UNITS Insulin Human Regular AC SC 07/05/24 17:00 07/07/24 06:10 6 UNITS Dextrose 50 ml UD PRN IV 07/05/24 15:30 Pantoprazole Sodium 40 mg DAILY IV 07/06/24 17:56 07/07/24 09:17 40 MG Sucralfate 1 gm BID@0600,2200 GT 07/07/24 22:00 objective Gen.: Patient lying in bed in no apparent distress. On supplemental oxygen. Head: Normocephalic, atraumatic Eyes: EOMI/PERRLA. Ears: Normal hearing. Normal anatomy. Neck/trachea: Trachea midline, supple. Nose: Normal external anatomy. Mouth: Moist mucous membranes. Chest: Fair air entry bilaterally. No wheezing or rhonchi. Cardio vascular: Positive S1, positive S2. Regular rate and rhythm. Abdomen: Positive bowel sounds in all 4 quadrants. Soft, non-tender, non- distended. : Deferred. Rectal: Deferred Skin: Warm, dry. Extremities: 2+ radial pulses bilaterally. No lower extremity edema. Neuro: Awake, alert, oriented x3. No gross motor or sensory deficits. Cranial nerves II through XII intact. Gait not assessed. laboratory and microbiology Laboratory Tests 07/06/24 04:53 Test 07/06/24 04:53 Range/Units Serum Glucose 159 H 74-106 mg/dL Assessment/Plan Impression: Acute on chronic hypoxic respiratory failure Dependence on supplemental oxygen AE COPD Pneumonia, likely gram negative Atelectasis Plan: On room air. Supplemental o2 PRN Continue bronchodilators/Pulmicort Continue antibiotics Follow up cultures Incentive spirometry Monitor renal function. Monitor electrolytes. Supplement as necessary. Monitor ins and outs. Accu-Cheks, ISS DVT prophylaxis - Lovenox. Prognosis: Poor given patient's multiple co-morbidities. Rest of plan per hospitalist and other consultants. Thank you, ELLIE Ortega, for allowing me to participate in this patient's care. Further recommendations will depend on the patient's clinical course. Please do not hesitate to contact me if you have any questions or concerns. This medical document was created using an electronic medical record system with Dragon computerized dictation system. Although these documentations are being carefully reviewed, there may still be some phonetic and typographical changes. The errors are purely typographical, due to imperfection on the software program, and do not reflect any compromise in the patient's medical care. Plan discussed with: Patient, Other (CRISTIAN Linton, PRIMER BOXER) KIAH MAURER MD Jul 07, 2024 12:21
[2024-07-07] MEDS ORDERED: SUCRALFATE 1 GM/10 ML ORAL SUSP GT SCH (22:00)
--- NOTE | 2024-07-07 22:20 | DVHPN2 ---
Progress Note - Dictate Date Seen: Jul 07, 2024 Medical Necessity Reason Pt with a Central, PICC or Fol: No Subjective Patient seen and examined at bedside. On room air Overnight events reviewed. vital signs Vital Sign Date Time Temp Pulse Resp B/P (MAP) Pulse Ox O2 Delivery O2 Flow Rate FiO2 07/07/24 13:00 98.4 77 17 115/50 (71) 92 98.4 07/07/24 11:32 Room Air 07/07/24 11:32 0 21 Total Intake and Output 07/06/24 07/06/24 07/07/24 15:00 23:00 07:00 Intake Total 530 ml 800 ml 450 ml Output Total 500 ml Balance 530 ml 300 ml 450 ml objective Gen.: Patient lying in bed in no apparent distress. On room air. Head: Normocephalic, atraumatic Eyes: EOMI/PERRLA. Ears: Normal hearing. Normal anatomy. Neck/trachea: Trachea midline, supple. Nose: Normal external anatomy. Mouth: Moist mucous membranes. Chest: Fair air entry bilaterally. No wheezing or rhonchi. Cardio vascular: Positive S1, positive S2. Regular rate and rhythm. Abdomen: Positive bowel sounds in all 4 quadrants. Soft, non-tender, non- distended. : Deferred. Rectal: Deferred Skin: Warm, dry. Extremities: 2+ radial pulses bilaterally. No lower extremity edema. Neuro: Awake, alert, oriented x3. No gross motor or sensory deficits. Cranial nerves II through XII intact. Gait not assessed. laboratory and microbiology Laboratory Tests 07/06/24 04:53 Test 07/06/24 04:53 Range/Units Serum Glucose 159 H 74-106 mg/dL Assessment/Plan Impression: Acute on chronic hypoxic respiratory failure AE COPD Pneumonia, likely gram negative Atelectasis Events: Remains on room air. Supplemental o2 PRN S/p EGD, dilation of esophagus GI recs appreciated. Continue antibiotics Incentive spirometry Patient is stable for discharge from the pulmonary standpoint. Labs and imaging reviewed. Rest of plan as noted below. Plan: On room air. Supplemental o2 PRN Continue bronchodilators/Pulmicort Continue antibiotics Follow up cultures Incentive spirometry Monitor renal function. Monitor electrolytes. Supplement as necessary. Monitor ins and outs. Accu-Cheks, ISS DVT prophylaxis - Lovenox. Prognosis: Poor given patient's multiple co-morbidities. Rest of plan per hospitalist and other consultants. A total of 51 minutes of clinical care time was spent reviewing the patient record, examining the patient, making a diagnostic and therapeutic plan, discussing this plan with the medical personnel, following up on diagnostic studies and following the patient for clinical stability excluding any and all procedures. At least 50% of this time was spent in direct, [id number] contact. Thank you, ELLIE Ortega, for allowing me to participate in this patient's care. Further recommendations will depend on the patient's clinical course. Please do not hesitate to contact me if you have any questions or concerns. This medical document was created using an electronic medical record system with [employer] computerized dictation system. Although these documentations are being carefully reviewed, there may still be some phonetic and typographical changes. The errors are purely typographical, due to imperfection on the software program, and do not reflect any compromise in the patient's medical care. Plan discussed with: Patient, Other (CRISTIAN [place]) KIAH MAURER MD Jul 07, 2024 22:20
--- NOTE | 2024-07-08 11:24 | PEER ---
Peer to Peer Review Time DATE: 07/08/24 TIME: 11:23 Review and Recommendations: Spoke with Dr. Luque, approved for inpatient. SULEIMAN LIM MD Jul 08, 2024 11:24
== END 2024-07-07 14:00 | disposition home or self-care (01) | DRG 177 ==
LOC: ER 11:27 → TELE 16:11 → TELE-EAST 23:57 → EAST 07-06 17:10
PROVIDERS: ADMIT Nurse Practitioner Acute Care; ATTEND Nurse Practitioner Acute Care
PROC: 0DB68ZX Excision of Stomach, Via Natural or Artificial Opening Endoscopic, Diagnostic (ICD-10-PCS; 2024-07-07)
PROC: 0DB38ZX Excision of Lower Esophagus, Via Natural or Artificial Opening Endoscopic, Diagnostic (ICD-10-PCS; 2024-07-07)
PROC: 0D758ZZ Dilation of Esophagus, Via Natural or Artificial Opening Endoscopic (ICD-10-PCS; 2024-07-07)
PROC: 0DB98ZX Excision of Duodenum, Via Natural or Artificial Opening Endoscopic, Diagnostic (ICD-10-PCS; principal; 2024-07-07 08:20)
DX: J69.0 Pneumonitis due to inhalation of food and vomit (principal); J96.21 Acute and chronic respiratory failure with hypoxia; N17.0 Acute kidney failure with tubular necrosis; J44.1 Chronic obstructive pulmonary disease with (acute) exacerbation; E87.1 Hypo-osmolality and hyponatremia; K29.70 Gastritis, unspecified, without bleeding; E11.9 Type 2 diabetes mellitus without complications; I10 Essential (primary) hypertension; E11.65 Type 2 diabetes mellitus with hyperglycemia; E87.5 Hyperkalemia; K21.9 Gastro-esophageal reflux disease without esophagitis; K58.9 Irritable bowel syndrome, unspecified; K44.9 Diaphragmatic hernia without obstruction or gangrene; K22.2 Esophageal obstruction; J98.4 Other disorders of lung; F32.A Depression, unspecified; T38.0X5A Adverse effect of glucocorticoids and synthetic analogues, initial encounter; E78.5 Hyperlipidemia, unspecified; F17.200 Nicotine dependence, unspecified, uncomplicated; I25.10 Atherosclerotic heart disease of native coronary artery without angina pectoris; Z95.1 Presence of aortocoronary bypass graft; Z91.81 History of falling; Z88.1 Allergy status to other antibiotic agents; Z83.3 Family history of diabetes mellitus; Z99.81 Dependence on supplemental oxygen; Y92.89 Other specified places as the place of occurrence of the external cause
CPT/HCPCS: 36415; 71045; 80048; 80053; 81001; 82962; 83036; 84484; 85025; 85610; 86703; 86850; 86870; 86900; 86901; 87426; 87804; 93005; 93306; 94640; 97110; 97116; 97163; 97530; 99291; 99292; G0378; J1815; J2250; J2405; J2470; J2704